=== PATIENT | female | born 1990 | race African-American/Black ===

== ENCOUNTER 2020-08-08 11:42 | Emergency (ER) | payer OTHER, MEDICAID, SELFPAY ==
[2020-08-08] VITALS (7 sets, daily range): BP systolic 107–121; BP diastolic 56–85; PULSE 69–102; RESP 13–18; TEMP 37.3; O2SAT 96–100
--- NOTE | ~2020-08-08 | XR_ITS ---
XR chest 2V DATE: 08/08/2020 12:57 INDICATION: Dizziness. Weakness. TECHNIQUE: AP and lateral views COMPARISON: None FINDINGS: Normal heart size. No hilar or mediastinal enlargement. No pulmonary infiltrate or consolid ation, pleural effusion or pulmonary vascular congestion or pneumothorax. Included skeletal structure s are unremarkable. IMPRESSION: No active cardiopulmonary disease Reviewed, dictated and finalized at location A.
--- NOTE | 2020-08-08 11:46 | ECG_ITS ---
Measurements Intervals [place] Rate: 91 P: 67 AL: 145 QRS: 60 QRSD: 82 T: 32 QT: 360 QTc: 444 Interpretive Statements SINUS RHYTHM NONSPECIFIC ST ELEVATION IN ANTEROLATERAL LEADS BORDERLINE T WAVE ABNORMALITY- INFERIOR LEADS BASELINE ARTIFACT- I, II, III, AVR, AVL, AVF, V1-V2 BORDERLINE ECG Electronically Signed On 08-08-2020 11:52:39 CDT by Sloan Swartz D.O.
[2020-08-08 11:57] LABS: Basophils Percent Auto 0.7 % (0.2-1.2); Eosinophils Absolute Auto 0.1 K/mm3 (0-0.3); Eosinophils Percent Auto 1.7 % (0-4.4); Hematocrit 37.8 % (37.0-47.0); Immature Granulocyte Absolute 0.02 K/mm3 (0.00-0.031); Immature Granulocyte Percent A 0.3 % (0-0.5); Lymphocytes Absolute Auto 1.71 K/mm3 (0.9-3.2); Lymphocytes Percent Auto 29.6 % (18.3-44.2); Mean Corpuscular HGB Conc 31.7 g/dl (32-36); Mean Corpuscular Hemoglobin 28.5 pg (26-34); Mean Corpuscular Volume 89.8 fl (80-100); Mean Platelet Volume 11.5 fl (7.4-10.4); Monocytes Absolute Auto 0.4 K/mm3 (0.1-0.6); Monocytes Percent Auto 6.4 % (2.6-8.5); Neutrophils Absolute Auto 3.5 K/mm3 (1.3-6.7); Neutrophils Percent Auto 61.3 % (45.5-73.1); Platelet Count Result 186 k/mm3 (150-375); Red Blood Count 4.21 M/mm3 (4.2-5.4); Red Cell Distribution Width 12.9 % (11.5-14.5); White Blood Count 5.8 K/mm3 (4.5-10.0)
--- NOTE | 2020-08-08 12:21 | ED.WEAKNESS ---
HPI - Weakness General Chief complaint: Weakness Stated complaint: WEAK/DIZZY Time Seen by Provider: 08/08/20 11:57 Source: patient Mode of arrival: EMS Limitations: no limitations History of Present Illness HPI Narrative: This is a 30 year old female that presents to the ER for weakness. 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 Reports she started to feel weak and lightheaded. Reports she walked to the break room and felt very weak. She felt like she was going to pass out, but did not. Reports she tried a coworker all last week that was recently diagnosed with Covid. Denies fever, chest pain, shortness of breath, abdominal pain, vomiting, or dysuria. Related Data Home Medications Medication Instructions Recorded Confirmed No Home Medications 08/08/20 08/08/20 Allergies Allergy/AdvReac Type Severity Reaction Status Date / Time No Known Allergies Allergy Verified 08/08/20 11:46 Review of Systems Review of Systems: Narrative: CONSTITUTIONAL: Denies fever CARDIOVASCULAR: Denies chest pain RESPIRATORY: Denies cough or dyspnea. GASTROINTESTINAL: Denies abdominal pain, nausea, vomiting GENITOURINARY: Denies dysuria NEUROLOGIC: Reports generalized weakness. All systems reviewed & are unremarkable except as noted in HPI and below PMFSH Past Medical History Medical History (Updated 08/08/20 @ 15:16 by Hanna Saenz PA-C) No active medical problems Social History Social History (Updated 08/08/20 @ 15:11 by Hanna Saenz PA-C) Substance use: never Exam Narrative: Exam Narrative: GENERAL: Well-appearing, well-nourished, and in no acute distress. HEAD: Normocephalic, atraumatic. EYES: PERRLA and EOMI. ENT: Nares clear, no rhinorrhea or epistaxis. Mucous membranes moist. Oropharynx without tonsillar hypertrophy exudate or other lesions. Bilateral TMs pearly santo non-bulging NECK: Supple. No adenopathy or masses. CHEST: Clear to auscultation. No respiratory distress. No wheezes rales or rhonchi HEART: Regular rate and rhythm. No murmur heard. Normal peripheral pulses. EXTREMITIES: Normal range of motion. No edema. Strength equal in bilateral upper and lower extremities (5/5) SKIN: Warm, dry, no rash. NEURO: No focal deficits. Alert and oriented x3. Cranial nerves II through XII grossly intact. Normal [id number] PSYCH: Normal mood and affect Course Vital Signs Vital signs: Vital Signs Temperature 99.2 F 08/08/20 11:41 Pulse Rate 69 08/08/20 11:41 Respiratory Rate 18 08/08/20 11:41 Blood Pressure 107/72 08/08/20 11:41 Pulse Oximetry 96 08/08/20 11:41 Temperature 99.2 F 08/08/20 11:41 Pulse Rate 79 08/08/20 14:37 Respiratory Rate 17 08/08/20 14:37 Blood Pressure 114/59 L 08/08/20 14:37 Pulse Oximetry 98 08/08/20 14:37 MDM - Weakness MDM Narrative Medical decision making narrative: Patient presents the emergency department for generalized weakness and lightheadedness. She is afebrile and nontoxic-appearing. Vitals are stable. She is not orthostatic. CBC and CMP without acute findings. UA without evidence of infection. Bedside test is negative. EKG shows sinus tach with nonspecific ST changes. Patient denies any chest pain or shortness of breath. Chest x-ray is without acute findings. Patient reports improvement with IV fluids. SARS-CoV-2 was sent due to recent exposure. She is stable and felt appropriate for further outpatient evaluation. She was given warnings to return to the ER Lab Data Attestation: I reviewed the patient's lab results. Result diagrams: 08/08/20 11:49 08/08/20 12:42 Labs: Lab Results 08/08/20 08/08/20 08/08/20 Range/Units 11:49 12:42 13:21 WBC 5.8 (4.5-10.0) K/mm3 RBC 4.21 (4.2-5.4) M/mm3 Hgb 12.0 (12.0-15.0) g/dL Hct 37.8 (37.0-47.0) % MCV 89.8 (80-100) fl MCH 28.5 (26-34) pg MCHC 31.7 L (32-36) g/dl RDW 12.9 (11.5-14.5) % Plt Count 186
[2020-08-08] MEDS: SODIUM CHLORIDE 0.9% IV 1,000 ML 999 ML IV CONT (12:39)
[2020-08-08 13:01] LABS: Alanine Aminotransferase 17 U/L (4-35); Albumin Level 4.6 g/dL (3.5-5.1); Alkaline Phosphatase 64 U/L (38-126); Anion Gap 10 mmol/L (8-16); Aspartate Amino Transferase 28 U/L (14-36); Bilirubin,Total 0.4 mg/dL (0.2-1.3); Blood Urea Nitrogen 10 mg/dL (7-17); Carbon Dioxide 30 mmol/L (22-30); Chloride 100 mmol/L (98-107); Estimated CRCL calculation 96 ml/min; Estimated Glomerular Filt Rate > 60; Glucose 90 mg/dL (65-105); Sodium 140 mmol/L (137-145)
[2020-08-08 13:40] LABS: Add Urine Microscopic? YES; Appearance Urine Clear (Clear); Bilirubin Urine Negative (Negative); Blood Urine Negative (Negative); Color Urine Straw (Yellow); Glucose Urine UA Negative (Negative); Ketones Urine Trace mg/dL (Negative); Leukocyte Esterase Ur Negative LEU/UL (Negative); Nitrate Urine Negative (Negative); Protein Urine Negative (Negative); RBC Urine 0-2 /hpf (0-2); Specific Grav Ur 1.013 (1.001-1.035); Squamous Epithelial Cell Urine Moderate /hpf (Few); Urobilinogen Urine Negative mg/dL (<2.0)
[2020-08-09 12:45] LABS: SARS-CoV-2 RNA PCR Negative
== END 2020-08-08 15:50 | disposition home or self-care (01) ==
PROVIDERS: Physician Assistant; Emergency Provider Emergency Medicine
DX: R42 Dizziness and giddiness (principal); Z20.828 Contact with and (suspected) exposure to other viral communicable diseases; R00.0 Tachycardia, unspecified
CPT/HCPCS: 36415; 71046; 80053; 81001; 81025; 85025; 87635; 93005; 96360; 99283; C9803; J7030; U0003

== ENCOUNTER 2020-08-12 09:53 | Emergency (ER) | payer OTHER, MEDICAID, SELFPAY ==
--- NOTE | ~2020-08-12 | CT_ITS ---
EXAMINATION: CT brain wo con EXAM DATE: 08/12/2020 11:03 INDICATION: Headache, lightheadedness. TECHNIQUE: Spiral CT of the head was performed without contrast. Axial, coronal and sagittal images were reviewed. The dose-length product (DLP) for this examination was 605.33 mGy-cm. The exposure w as tailored according to patient size, and iterative reconstruction (ASIR) was used as additional dos e reduction technique. There is no prior study for comparison. FINDINGS: There is no acute intraparenchymal hemorrhage. No evidence of intraparenchymal brain mass lesion. No evidence of acute infarction. There is no mass effect or midline shift. The ventricles are normal in size. There are no extra-axial collections. There are no acute calvarial fractures. T he orbits are unremarkable. Soft tissue is unremarkable. The visualized sinuses and mastoid air manjeet ls are well aerated. IMPRESSION: 1. Normal head CT examination. Reviewed, dictated and finalized at location B. [facility]
--- NOTE | ~2020-08-12 | XR_ITS ---
EXAMINATION: XR chest 2V DATE: 08/12/2020 13:14 INDICATION: Shortness of breath TECHNIQUE: AP and lateral views of the chest are obtained. COMPARISON: 08/08/2020 FINDINGS: The lungs are free of acute opacities. There is no pleural effusion or pneumothorax. The ca rdiomediastinal silhouette is normal. The visualized bones and soft tissues are unremarkable. IMPRESSION: 1. No acute cardiopulmonary abnormality. 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
[2020-08-12 10:06] VITALS: BP 115/75; PULSE 81; RESP 17; TEMP 36.8; O2SAT 100
--- NOTE | 2020-08-12 10:12 | ECG_ITS ---
Measurements Intervals [place] Rate: 80 P: 63 UT: 139 QRS: 64 QRSD: 82 T: 15 QT: 354 QTc: 410 Interpretive Statements SINUS RHYTHM NONSPECIFIC T-WAVE ABNORMALITY- ANT/INF LEADS BASELINE ARTIFACT- I, II, AVR, AVF BORDERLINE ECG Electronically Signed On 08-12-2020 10:22:22 QA SPECIALIST by Sloan Swartz D.O.
--- NOTE | 2020-08-12 10:21 | ED.DIZZY ---
HPI - Dizziness General Chief Complaint: Dizziness Stated Complaint: DIZZY, WAS SEEN HERE WEDNESDAY Time Seen by Provider: 08/12/20 10:10 Source: patient Mode of arrival: ambulatory Limitations: no limitations History of Present Illness HPI Narrative: This is a 30 year old female that presents to the ER for lightheadedness and weakness. She was seen here for this 4 days ago. Has continued to have symptoms. Also reports a headache and shortness of breath today. Denies fever, chest pain, cough, vomiting, lower extremity edema or numbness. Related Data Home Medications Medication Instructions Recorded Confirmed No Home Medications 08/08/20 08/08/20 Allergies Allergy/AdvReac Type Severity Reaction Status Date / Time No Known Allergies Allergy Verified 08/12/20 10:12 Review of Systems Review of Systems: Narrative: CONSTITUTIONAL: Denies fever EYES: Denies visual changes CARDIOVASCULAR: Denies chest pain, or edema. RESPIRATORY: Reports dyspnea. Denies cough GASTROINTESTINAL: Denies abdominal pain, nausea, vomiting GENITOURINARY: Denies dysuria or hematuria. SKIN: Denies rash NEUROLOGIC: Reports headache, and generalized weakness. Denies numbness All systems reviewed & are unremarkable except as noted in HPI and below PMFSH Past Medical History Medical History (Updated 08/12/20 @ 15:59 by Hanna Saenz PA-C) No active medical problems Social History Social History (Updated 08/12/20 @ 10:23 by Hanna Saenz PA-C) Smoking status: Never smoker Substance use: never Exam Narrative: Exam Narrative: GENERAL: Well-appearing, well-nourished, and in no acute distress. HEAD: Normocephalic, atraumatic. EYES: PERRLA and EOMI. ENT: Nares clear, no rhinorrhea or epistaxis. Mucous membranes moist. Oropharynx without tonsillar hypertrophy exudate or other lesions. NECK: Supple. No adenopathy or masses. CHEST: Clear to auscultation. No respiratory distress. No wheezes rales or rhonchi HEART: Regular rate and rhythm. No murmur heard. Normal peripheral pulses. EXTREMITIES: Normal range of motion. No edema. Strength equal in bilateral upper and lower extremities (5/5) SKIN: Warm, dry, no rash. NEURO: No focal deficits. Alert and oriented x3. Cranial nerves II through XII grossly intact PSYCH: Normal mood and affect Course Consultations Consultation #1: Spoke with Dr. Zhao about patient and work-up. She will need further testing done and he can follow-up with her for this. Date: 08/12/20 Time: 15:57 Vital Signs Vital signs: Vital Signs Temperature 98.2 F 08/12/20 10:06 Pulse Rate 81 08/12/20 10:06 Respiratory Rate 17 08/12/20 10:06 Blood Pressure 115/75 08/12/20 10:06 Pulse Oximetry 100 08/12/20 10:06 Temperature 98.2 F 08/12/20 10:06 Pulse Rate 92 08/12/20 15:47 Respiratory Rate 18 08/12/20 13:21 Blood Pressure 97/73 L 08/12/20 15:47 Pulse Oximetry 100 08/12/20 13:21 MDM - Dizziness MDM Narrative Medical decision making narrative: Patient presents to the emergency department for lightheadedness. Was also reporting shortness of breath. Orthostatic upon arrival. This improved with IV fluids. Was not orthostatic on repeat orthostats and was able to ambulate to the bathroom. Patient reports relief in symptoms with IV fluid and migraine cocktail for headache. CBC is without leukocytosis. Does show mild normocytic anemia with hemoglobin of 11.8. Metabolic panel without concerning findings. D-dimer is negative and chest x-ray is without acute findings. TSH is normal. Bedside test is negative. CT scan of the brain is without acute findings. PTT was prolonged on coagulation studies. I did repeat this and it was prolonged again. Spoke with Dr. Zhao about patient and work-up. She will need further testing done and he can follow-up with her for this. I believe this can be done on an outpatient basis. No active bleeding today. Denies any previous problems wi
--- NOTE | 2020-08-12 10:52 | PC.NURSE ---
pt. has been stuck multiple times and only three vacs were obtained (two green, one purple). Remaining tests need to be completed, PT INT PTT D dimer, and TSH reflex.
[2020-08-12 10:54] LABS: Basophils Absolute Auto 0.1 K/mm3 (0.0-0.1); Basophils Percent Auto 0.9 % (0.2-1.2); Eosinophils Absolute Auto 0.2 K/mm3 (0-0.3); Eosinophils Percent Auto 3.2 % (0-4.4); Hematocrit 37.2 % (37.0-47.0); Hemoglobin 11.8 g/dL (12.0-15.0); Immature Granulocyte Absolute 0.03 K/mm3 (0.00-0.031); Immature Granulocyte Percent A 0.6 % (0-0.5); Lymphocytes Absolute Auto 1.47 K/mm3 (0.9-3.2); Lymphocytes Percent Auto 27.4 % (18.3-44.2); Mean Corpuscular HGB Conc 31.7 g/dl (32-36); Mean Corpuscular Hemoglobin 28.4 pg (26-34); Mean Corpuscular Volume 89.4 fl (80-100); Mean Platelet Volume 11.6 fl (7.4-10.4); Monocytes Absolute Auto 0.4 K/mm3 (0.1-0.6); Monocytes Percent Auto 7.3 % (2.6-8.5); Neutrophils Absolute Auto 3.3 K/mm3 (1.3-6.7); Neutrophils Percent Auto 60.6 % (45.5-73.1); Platelet Count Result 178 k/mm3 (150-375); Red Blood Count 4.16 M/mm3 (4.2-5.4); Red Cell Distribution Width 12.8 % (11.5-14.5); White Blood Count 5.4 K/mm3 (4.5-10.0)
[2020-08-12 11:11] LABS: Anion Gap 8 mmol/L (8-16); Blood Urea Nitrogen 10 mg/dL (7-17); Calcium 8.9 mg/dL (8.4-10.2); Carbon Dioxide 28 mmol/L (22-30); Chloride 103 mmol/L (98-107); Estimated CRCL calculation 83 ml/min; Estimated Glomerular Filt Rate > 60; Glucose 72 mg/dL (65-105); Potassium 4.2 mmol/L (3.4-5.0); Sodium 139 mmol/L (137-145)
[2020-08-12] MEDS: SODIUM CHLORIDE 0.9% IV 1,000 ML 999 ML IV CONT ×2 (11:17→12:59)
[2020-08-12] MEDS: diphenhydrAMINE HCl INJ 50 MG/ML VIAL 25 MG IV PUSH (11:18)
[2020-08-12] MEDS: METOCLOPRAMIDE HCL INJ 10 MG/2 ML VIAL IV PUSH (11:18)
[2020-08-12] MEDS: KETOROLAC 15 MG/ML VIAL (*BKC) IV PUSH (11:22)
[2020-08-12 11:45] VITALS: BP 105/67; BP 120/66; BP 95/81; PULSE 102; PULSE 84; PULSE 87
--- NOTE | 2020-08-12 11:57 | PC.NURSE ---
called phleb 11:58, said they would get to her after they finished in a room they were just entering.
[2020-08-12 12:36] LABS: Prothrombin Time 13.9 Seconds (11.1-14.7)
[2020-08-12 12:39] LABS: Partial Thromboplastin Time 123.3 SECONDS (22.3-36.8)
[2020-08-12 12:42] LABS: D Dimer 0.27 ug/mL (<0.48)
--- NOTE | 2020-08-12 13:01 | PC.NURSE ---
MARCELLO requested PTT be re-done, called phleb [phone] and asked someone to come draw
[2020-08-12 13:21] VITALS: BP 120/77; PULSE 87; RESP 18; O2SAT 100
[2020-08-12 13:56] LABS: Partial Thromboplastin Time 173.6 SECONDS (22.3-36.8)
[2020-08-12 14:23] LABS: Free T4 Free Thyroxine Reflex 0.78 ng/dL (0.78-2.19)
[2020-08-12 14:52] LABS: Prothrombin Time 13.5 Seconds (11.1-14.7)
[2020-08-12 15:04] LABS: Total Triiodothyronine (T3) 1.07 NG/ML (0.97-1.69)
[2020-08-12 15:45] VITALS: BP 103/63; PULSE 79
[2020-08-12 15:46] VITALS: BP 105/73; PULSE 87
[2020-08-12 15:47] VITALS: BP 97/73; PULSE 92
== END 2020-08-12 16:08 | disposition home or self-care (01) ==
PROVIDERS: Physician Assistant; Emergency Provider Emergency Medicine; PCP Emergency Medicine
DX: I95.1 Orthostatic hypotension (principal); R79.1 Abnormal coagulation profile
CPT/HCPCS: 36415; 70450; 71046; 80048; 81025; 84439; 84443; 84480; 85025; 85380; 85610; 85730; 93005; 96361; 96374; 96375; 99284; J0131; J1200; J1885; J2765; J7030

== ENCOUNTER 2020-11-13 14:00 | Outpatient (CLI) | payer OTHER, MEDICAID, SELFPAY ==
[2020-11-13 14:22] LABS: Basophils Percent Auto 0.6 % (0.2-1.2); Eosinophils Absolute Auto 0.1 K/mm3 (0-0.3); Eosinophils Percent Auto 2.1 % (0-4.4); Hematocrit 37.4 % (37.0-47.0); Hemoglobin 11.8 g/dL (12.0-15.0); Immature Granulocyte Absolute 0.02 K/mm3 (0.00-0.031); Immature Granulocyte Percent A 0.4 % (0-0.5); Lymphocytes Absolute Auto 1.93 K/mm3 (0.9-3.2); Lymphocytes Percent Auto 40.1 % (18.3-44.2); Mean Corpuscular HGB Conc 31.6 g/dl (32-36); Mean Corpuscular Hemoglobin 27.6 pg (26-34); Mean Corpuscular Volume 87.6 fl (80-100); Mean Platelet Volume 11.2 fl (7.4-10.4); Monocytes Absolute Auto 0.4 K/mm3 (0.1-0.6); Monocytes Percent Auto 8.1 % (2.6-8.5); Neutrophils Absolute Auto 2.3 K/mm3 (1.3-6.7); Neutrophils Percent Auto 48.7 % (45.5-73.1); Platelet Count Result 208 k/mm3 (150-375); Red Blood Count 4.27 M/mm3 (4.2-5.4); Red Cell Distribution Width 12.7 % (11.5-14.5); White Blood Count 4.8 K/mm3 (4.5-10.0)
[2020-11-13 16:30] LABS: Iron 105 ug/dL (37-170)
[2020-11-13 16:33] LABS: Alanine Aminotransferase 10 U/L (4-35); Albumin Level 4.5 g/dL (3.5-5.1); Alkaline Phosphatase 63 U/L (38-126); Anion Gap 7 mmol/L (8-16); Aspartate Amino Transferase 23 U/L (14-36); Bilirubin,Total 0.5 mg/dL (0.2-1.3); Blood Urea Nitrogen 12 mg/dL (7-17); Calcium 9.3 mg/dL (8.4-10.2); Carbon Dioxide 28 mmol/L (22-30); Chloride 104 mmol/L (98-107); Estimated Glomerular Filt Rate > 60; Glucose 78 mg/dL (65-105); Potassium 4.5 mmol/L (3.4-5.0); Sodium 139 mmol/L (137-145)
[2020-11-13 16:40] LABS: Percent Iron Saturation 29 % (20-50)
[2020-11-13 16:41] LABS: INR 0.9; Prothrombin Time 12.6 Seconds (11.1-14.7)
[2020-11-13 16:45] LABS: Partial Thromboplastin Time 138.4 SECONDS (22.3-36.8)
== END 2020-11-13 14:01 | disposition home or self-care (01) ==
PROVIDERS: PCP Emergency Medicine; Visit Provider Internal Medicine Hematology & Oncology
DX: D64.9 Anemia, unspecified (principal); R79.1 Abnormal coagulation profile
CPT/HCPCS: 36415; 80053; 82607; 82728; 83540; 83550; 84443; 85025; 85610; 85730; 86038; 86039

== ENCOUNTER 2020-11-28 13:01 | Outpatient (CLI) | payer OTHER, MEDICAID, SELFPAY | END 2020-11-28 13:02 | disposition home or self-care (01) | LOC: ANHLAB 13:03 | PROVIDERS: PCP Emergency Medicine; Visit Provider Internal Medicine Hematology & Oncology | DX: R79.1 Abnormal coagulation profile (principal) | CPT/HCPCS: 36415; 85240; 85250; 85335 ==

== ENCOUNTER 2023-03-09 08:12 | Emergency (ER) | payer OTHER, BC, SELFPAY ==
--- NOTE | ~2023-03-09 | XR_ITS ---
Clinical Indication: Chest pain PA and lateral views of the chest: Comparison: 08/12/2020 Findings: The lungs are clear, without evidence of focal consolidation or pleural effusion. Cardiome diastinal silhouette is within normal limits. Bones and soft tissues are unremarkable. Impression: Normal chest. Reviewed, dictated and finalized at location . Impression: Normal chest.
--- NOTE | ~2023-03-09 | CT_ITS ---
EXAMINATION: CTA chest PE protocol DATE: 03/09/2023 10:11 INDICATION: Chest pain. Elevated d-dimer. TECHNIQUE: Computed tomography (CT) pulmonary angiogram of the chest was performed with 100 mL Omnipa que-350 intravenous contrast. Additional 3D reconstructions utilizing coronal maximum intensity proje ction (MIP) were performed. Automated exposure control and iterative reconstruction technique were em ployed. The dose-length product was 208.75 mGy-cm. COMPARISON: None FINDINGS: Excellent contrast opacification of the pulmonary arteries. There is mild streak artifact from dense contrast in the superior vena cava and right atrium. Minimal scattered respiratory motion artifact wh ich does not significantly limit evaluation. No pulmonary embolism. 3 mm subpleural nodule at the pos terior left lower lobe. There is minimal dependent atelectasis in the right lower lobe. No pneumonia, pulmonary edema, pleural effusion or pneumothorax. Heart size is normal. No pericardial effusion. Th oracic aorta is normal in caliber with no dissection. There is a mixed pattern of interspersed soft t issue and fat attenuation in the anterior mediastinum without a more discrete homogeneous soft tissue density mass. This demonstrates a typical triangular configuration with concave margins and appearan ce for residual thymic tissue but slightly larger in size than normal for age, potentially thymic hyp erplasia. No pathologically enlarged thoracic lymphadenopathy. Visualized upper abdomen and bones are unremarkable. IMPRESSION: 1. No pulmonary embolism or other acute cardiopulmonary disease. 2. Greater than typical size of the thymus but which retains normal appearance and morphology with co nvex margins equivocal for thymic hyperplasia. 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 IMPRESSION: 1. No pulmonary embolism or other acute cardiopulmonary disease. 2. Greater than typical size of the thymus but which retains normal appearance and morphology with convex margins equivocal for thymic hyperplasia.
[2023-03-09 08:24] VITALS: BP 123/72; PULSE 68; RESP 16; TEMP 36.3; O2SAT 100
--- NOTE | 2023-03-09 08:26 | ECG_ITS ---
Measurements Intervals [place] Rate: 62 P: 57 SD: 160 QRS: 63 QRSD: 86 T: 46 QT: 422 QTc: 430 Interpretive Statements SINUS RHYTHM BORDERLINE T WAVE ABNORMALITY- ANTERIOR LEADS BASELINE ARTIFACT- I, II, AVR, V4-V6 BORDERLINE ECG COMPARED TO ECG 08/12/2020 10:03:38 NO SIGNIFICANT CHANGES Electronically Signed On 03-09-2023 9:22:09 CDT by Sloan Swartz D.O.
--- NOTE | 2023-03-09 08:31 | ED.WEAKNESS ---
HPI - Weakness General Chief complaint: Weakness Stated complaint: FATIGUE X3D Time Seen by Provider: 03/09/23 08:21 Source: patient, RN notes reviewed and old records reviewed Mode of arrival: ambulatory Limitations: no limitations History of Present Illness HPI Narrative: This is a 32 year old female who presents for evaluation of fatigue. Patient states she has been extremely fatigue for 3 days. She has been in the bed sleeping for 2 days. She reports nonradiating midsternal chest pain yesterday. She also reports nausea. She denies cough, fever, chills, abdominal pain, diarrhea. She reports history of intermittent migraine but she denies headache today. She has been eating and drinking normally. She denies any recent alcohol use or drug use. She denies any medication changes. Related Data Home Medications Medication Instructions Recorded Confirmed No Home Medications 08/08/20 03/09/23 Allergies Allergy/AdvReac Type Severity Reaction Status Date / Time No Known Allergies Allergy Verified 08/12/20 10:12 Review of Systems Constitutional: Constitutional: Reports fatigue and Denies weakness Cardiovascular: Cardiovascular: Reports chest pain, Denies syncope, Denies rapid heart rate, Denies irregular heart rhythm, Denies leg edema and Denies dyspnea Respiratory: Respiratory: Denies chest congestion, Denies hemoptysis, Denies excessive phlegm production and Denies dyspnea Gastrointestinal: Gastrointestinal: Denies abdominal pain, Denies hematochezia, Denies diarrhea, Reports nausea and Denies vomiting Genitourinary: Genitourinary: Denies hematuria and Denies dysuria Musculoskeletal: Musculoskeletal: Denies joint swelling, Denies loss of height and Denies muscle weakness Neurologic: Denies syncope, Denies focal weakness and Denies weakness PMFSH Past Medical History Medical History No active medical problems Social History Social History Smoking status: Never smoker Substance use: never Exam Narrative: GENERAL: Well-appearing, well-nourished, and in no acute distress. HEAD: Normocephalic, atraumatic EYES: PERRLA and EOMI, conjunctiva clear without discharge EARS: TM's clear bilaterally without erythema or dullness NOSE: Nares clear, no rhinorrhea or epistaxis THROAT:Mucous membranes moist, Oropharynx normal without erythema, exudate, peritonsillar swelling or fluctuance NECK: Supple, without lymphadenopathy or mass RESPIRATORY: No respiratory distress, Airway patent, Respirations non-labored, Clear to auscultation without rales, rhonchi or wheeze HEART: Regular rate and rhythm. No murmur heard. Normal peripheral pulses. ABDOMEN: Soft, nontender, nondistended, normal active bowel sounds. No masses. No rebound or guarding, No organomegaly. EXTREMITIES: No edema, normal strength with full range of motion. SKIN: Warm, dry, normal color without rash NEURO: Alert and oriented x3. CN 2-12 grossly intact. No focal deficits. PSYCH: Normal mood and affect. Course Reevaluation(s) Reevaluation #1: I discussed with patient evaluation unremarkable other than enlarge thymus. She will follow up with PCP Date: 03/09/23 Time: 10:57 Vital Signs Vital signs: Vital Signs Temperature 97.3 F L 03/09/23 08:24 Pulse Rate 68 03/09/23 08:24 Respiratory Rate 16 03/09/23 08:24 Blood Pressure 123/72 03/09/23 08:24 Pulse Oximetry 100 03/09/23 08:24 Oxygen Delivery Room Air 03/09/23 08:24 Temperature 97.3 F L 03/09/23 08:24 Pulse Rate 68 03/09/23 08:24 Respiratory Rate 16 03/09/23 08:24 Blood Pressure 123/72 03/09/23 08:24 Pulse Oximetry 100 03/09/23 08:24 Oxygen Delivery Room Air 03/09/23 08:24 MDM - Weakness Differential Diagnosis Differential diagnosis: Likely acute myocardial infarction, anemia, hypothyroidism, sepsis and dehydration Medical Record
[2023-03-09] MEDS: SODIUM CHLORIDE 0.9% IV 1,000 ML 999 ML IV CONT (08:49)
[2023-03-09] MEDS: ONDANSETRON INJ 4 MG/2 ML VIAL IV PUSH (08:49)
[2023-03-09 08:56] LABS: Appearance Urine Clear (Clear); Bilirubin Urine Negative (Negative); Blood Urine Negative (Negative); Color Urine Yellow (Yellow); Glucose Urine UA Negative (Negative); Ketones Urine Negative (Negative); Leukocyte Esterase Ur Negative LEU/UL (Negative); Nitrate Urine Negative (Negative); Protein Urine Negative (Negative); Specific Grav Ur 1.018 (1.001-1.035)
[2023-03-09 08:58] LABS: Basophils Percent Auto 0.8 % (0.2-1.2); Eosinophils Absolute Auto 0.1 K/mm3 (0-0.3); Eosinophils Percent Auto 1.9 % (0-4.4); Hematocrit 36.3 % (37.0-47.0); Hemoglobin 11.5 g/dL (12.0-15.0); Immature Granulocyte Absolute 0.02 K/mm3 (0.00-0.031); Immature Granulocyte Percent A 0.4 % (0-0.5); Lymphocytes Absolute Auto 1.52 K/mm3 (0.9-3.2); Lymphocytes Percent Auto 28.6 % (18.3-44.2); Mean Corpuscular HGB Conc 31.7 g/dl (32-36); Mean Corpuscular Hemoglobin 28.4 pg (26-34); Mean Corpuscular Volume 89.6 fl (80-100); Mean Platelet Volume 11.9 fl (7.4-10.4); Monocytes Absolute Auto 0.3 K/mm3 (0.1-0.6); Monocytes Percent Auto 6.2 % (2.6-8.5); Neutrophils Absolute Auto 3.3 K/mm3 (1.3-6.7); Neutrophils Percent Auto 62.1 % (45.5-73.1); Platelet Count Result 204 k/mm3 (150-375); Red Blood Count 4.05 M/mm3 (4.2-5.4); Red Cell Distribution Width 12.9 % (11.5-14.5); White Blood Count 5.3 K/mm3 (4.5-10.0)
[2023-03-09 09:02] LABS: Add Urine Microscopic? NO
[2023-03-09 09:04] LABS: INR 0.9
[2023-03-09 09:11] LABS: D Dimer 0.67 ug/mL (<0.48)
[2023-03-09 09:12] LABS: Alanine Aminotransferase 17 U/L (6-35); Albumin Level 4.2 g/dL (3.5-5.1); Alkaline Phosphatase 54 U/L (38-126); Anion Gap 4 mmol/L (8-16); Aspartate Amino Transferase 29 U/L (14-36); Bilirubin,Total 0.6 mg/dL (0.2-1.3); Blood Urea Nitrogen 14 mg/dL (7-17); Calcium 8.9 mg/dL (8.4-10.2); Carbon Dioxide 31 mmol/L (22-30); Chloride 101 mmol/L (98-107); Estimated CRCL calculation 112 ml/min; Estimated Glomerular Filt Rate > 60; Ethanol < 10 mg/dL (<10); Glucose 90 mg/dL (65-110); Lipase 100 U/L (23-300); Magnesium 1.8 mg/dL (1.6-2.3); Potassium 4.5 mmol/L (3.4-5.0); Sodium 136 mmol/L (137-145)
[2023-03-09 09:14] LABS: Amphetamine Screen Urine Negative (Negative); Barbiturate Screen Urine Negative (Negative); Benzodiazepines Screen Urine Negative (Negative); Cannabinoid Screen Urine Negative (Negative); Cocaine Screen Urine Negative (Negative); Methadone Screen Urine Negative (Negative); Opiate Screen Urine Negative (Negative); Phencyclidine Screen Urine Negative (Negative)
[2023-03-09 09:23] LABS: Troponin I < 0.012 ng/mL (0.000-0.034)
[2023-03-09 09:28] LABS: Influenza A QL RT-PCR Negative (Negative); Influenza B QL RT-PCR Negative (Negative); SARS-CoV-2 RNA PCR Negative (Negative)
[2023-03-09 11:13] VITALS: RESP 18; O2SAT 100
== END 2023-03-09 11:13 | disposition home or self-care (01) ==
PROVIDERS: Emergency Provider General Practice; PCP Family Medicine
DX: R94.31 Abnormal electrocardiogram [ECG] [EKG] (principal)
CPT/HCPCS: 36415; 71046; 71275; 80053; 80307; 81003; 81025; 83690; 83735; 84443; 84484; 85025; 85380; 85610; 85730; 87636; 93005; 96361; 96374; 99284; J2405; J7030; Q9967

== ENCOUNTER 2023-05-15 12:44 | Emergency (ER) | payer OTHER, SELFPAY ==
[2023-05-15 13:04] VITALS: BP 115/57; PULSE 71; RESP 16; TEMP 36.2; O2SAT 100
--- NOTE | 2023-05-15 14:22 | ED.GENADULT ---
HPI - General Adult General Chief complaint: Urogenital-Female Stated complaint: UTI Time Seen by Provider: 05/15/23 14:22 Source: patient Mode of arrival: ambulatory Limitations: no limitations History of Present Illness HPI narrative: 32-year-old female patient presents to [facility] with complaints of urinary symptoms that started about 2-3 days ago. Patient states this started with urinary frequency and urgency. Patient states she has now developed pain with urination. Denies any low back pain, nausea, vomiting or diarrhea. Related Data Home Medications Medication Instructions Recorded Confirmed ergocalciferol (vitamin D2) 1,250 05/15/23 mcg (50,000 unit) capsule ferrous sulfate 325 mg (65 mg mg 05/15/23 iron) tablet Allergies Allergy/AdvReac Type Severity Reaction Status Date / Time No Known Allergies Allergy Verified 05/15/23 13:19 Review of Systems Review of Systems: CONSTITUTIONAL: Denies fever, chills, or sweats. EYES: Denies visual changes, redness, or discharge. ENT: Denies rhinorrhea, congestion, sore throat, or otalgia. CARDIOVASCULAR: Denies chest pain, palpitations, or edema. RESPIRATORY: Denies cough or dyspnea. GASTROINTESTINAL: Denies abdominal pain, nausea, vomiting, or diarrhea. GENITOURINARY: Positive dysuria denies hematuria. SKIN: Denies rash or itching. MUSCULOSKELETAL: Denies back pain, joint pain, or myalgia. NEUROLOGIC: Denies headache, numbness, or weakness. PSYCHIATRIC: Denies anxiety or depression. PMFSH Past Medical History Medical History No active medical problems Social History Social History Smoking status: Never smoker Substance use: never Exam Narrative: GENERAL: Well-appearing, well-nourished, and in no acute distress. HEAD: Normocephalic, atraumatic. EYES: PERRLA and EOMI. ENT: Nares clear, no rhinorrhea or epistaxis. Mucous membranes moist. NECK: Supple. No lymphadenopathy CHEST: Clear to auscultation. No respiratory distress. HEART: Regular rate and rhythm. No murmur heard. Normal peripheral pulses. ABDOMEN: Soft, nontender, nondistended, normal active bowel sounds. No CVA tenderness on percussion EXTREMITIES: Normal range of motion. No edema. SKIN: Warm, dry, no rash. NEURO: No focal deficits. Alert and oriented x3. Course Course Level of Care: Express Care Visit Vital Signs Vital signs: Vital Signs Temperature 36.2 C L 05/15/23 13:04 Pulse Rate 71 05/15/23 13:04 Respiratory Rate 16 05/15/23 13:04 Blood Pressure 115/57 L 05/15/23 13:04 Pulse Oximetry 100 05/15/23 13:04 Oxygen Delivery Room Air 05/15/23 13:04 Temperature 36.2 C L 05/15/23 13:04 Pulse Rate 71 05/15/23 13:04 Respiratory Rate 16 05/15/23 13:04 Blood Pressure 115/57 L 05/15/23 13:04 Pulse Oximetry 100 05/15/23 13:04 Oxygen Delivery Room Air 05/15/23 13:04 Medical Decision Making Differential Diagnosis Differential Diagnosis: Differential diagnosis: Uncomplicated lower UTI, uncomplicated UTI, pyelonephritis Vital Signs Vital Signs: Vital Signs Temperature 36.2 C L 05/15/23 13:04 Pulse Rate 71 05/15/23 13:04 Respiratory Rate 16 05/15/23 13:04 Blood Pressure 115/57 L 05/15/23 13:04 Pulse Oximetry 100 05/15/23 13:04 Oxygen Delivery Room Air 05/15/23 13:04 Temperature 36.2 C L 05/15/23 13:04 Pulse Rate 71 05/15/23 13:04 Respiratory Rate 16 05/15/23 13:04 Blood Pressure 115/57 L 05/15/23 13:04 Pulse Oximetry 100 05/15/23 13:04 Oxygen Delivery Room Air 05/15/23 13:04 Lab Data Labs: UCG Bedside Result Negative Reference Range: Negative Urine Glucose Negative Reference Range: Negative Urine Bilirubin Negative
== END 2023-05-15 14:41 | disposition home or self-care (01) ==
PROVIDERS: Emergency Provider Nurse Practitioner Family; PCP Emergency Medicine
DX: N39.0 Urinary tract infection, site not specified (principal)
CPT/HCPCS: 81003; 81025; 87077; 87086; 87186; 99213; G0463

== ENCOUNTER 2023-07-01 08:45 | Emergency (ER) | payer OTHER, SELFPAY ==
[2023-07-01 08:55] VITALS: BP 115/69; PULSE 98; RESP 16; TEMP 36.8; O2SAT 100
--- NOTE | 2023-07-01 09:24 | ED.ALLEREA ---
HPI - Allergic Reaction General Chief complaint: Allergic Reaction Stated complaint: Allergic Reaction Time Seen by Provider: 07/01/23 09:25 Source: patient, RN notes reviewed and old records reviewed Mode of arrival: ambulatory Limitations: no limitations History of Present Illness HPI narrative: 32 year old female who [facility] with complaints of facial swelling on Wednesday after using hair dye. Patient reports that she took some Benadryl and it improved on Wednesday. Patient states that her left eye continues to be swollen and she was sent home from work today. Patient denies any pain or feelings of irritation to eye or any change in her vision. Visual acuity right 20/40, left 20/50. together 20/30 without correction. Patient denies any shortness of breath or any difficulty with breathings.Patient has no drooping of face tongue is midline,face is symmetrical. MD complaint: facial swelling and other (eye swelling left) Onset (ago): day(s) (2) Known history of allergy to: none Symptoms: facial swelling and other (left eye lid swelling) Severity: mild Previous Allergic Reaction History: none Related Data Home Medications Medication Instructions Recorded Confirmed ergocalciferol (vitamin D2) 1,250 05/15/23 mcg (50,000 unit) capsule ferrous sulfate 325 mg (65 mg mg 05/15/23 iron) tablet Allergies Allergy/AdvReac Type Severity Reaction Status Date / Time No Known Allergies Allergy Verified 07/01/23 08:56 Review of Systems Review of Systems: CONSTITUTIONAL: Denies fever, chills, or sweats. CARDIOVASCULAR: Denies chest pain, palpitations, or edema. RESPIRATORY: Denies cough or dyspnea. SKIN: Reports .previous swelling of face along forehead and now some left eye swelling MUSCULOSKELETAL: Denies joint pain or myalgia. NEUROLOGIC: Denies headache, numbness, or weakness. All systems reviewed & are unremarkable except as noted in HPI and below PMFSH Past Medical History Medical History Anemia Surgical History Surgical History History of endometrial ablation Social History Social History Smoking status: Never smoker Substance use: never Comments At time of signature, agree with nursing past medical, surgical, social and family history. There is no relevant family history pertinent to the presenting complaint Exam Narrative: GENERAL: Well-appearing, well-nourished, and in no acute distress. HEAD: Normocephalic, atraumatic. EYES: PERRLA, conjunctivae clear, and EOMI.swelling of left eyelid, denies any visual changes or sharp pain or feeling of foreign body ENT: Mucous membranes moist. Oropharynx without edema, erythema or lesions. NECK: Supple. No lymphadenopathy CHEST: Clear to auscultation. No respiratory distress. HEART: Regular rate and rhythm. SKIN: Warm, dry.? NEURO:? Alert and oriented x3. PSYCH: Normal mood and affect Course Course Emergency Course: Patient is aware of diagnosis, understands and agrees to treatment plan.? Anticipatory guidance given.? Patient agrees to follow-up as directed and is aware of reasons to seek care at the emergency department. Portions of this record may have been created with voice recognition software Level of Care: Express Care Visit Vital Signs Vital signs: Vital Signs Temperature 36.8 C 07/01/23 08:55 Pulse Rate 98 07/01/23 08:55 Respiratory Rate 16 07/01/23 08:55 Blood Pressure 115/69 07/01/23 08:55 Pulse Oximetry 100 07/01/23 08:55 Oxygen Delivery Room Air 07/01/23 08:55 Temperature 36.8 C 07/01/23 08:55 Pulse Rate 98 07/01/23 08:55 Respiratory Rate 16 07/01/23 08:55 Blood Pressure 115/69 07/01/23 08:55 Pulse Oximetry 100 07/01/23 08:55 Oxygen Delivery Room Air 07/01/23 08:55 Reviewed MDM
== END 2023-07-01 09:46 | disposition home or self-care (01) ==
PROVIDERS: Emergency Provider Registered Nurse; PCP Emergency Medicine
DX: T78.40XA Allergy, unspecified, initial encounter (principal)
CPT/HCPCS: 99213; G0463

== ENCOUNTER 2023-07-13 15:58 | Emergency (ER) | payer OTHER, SELFPAY ==
--- NOTE | ~2023-07-13 | CT_ITS ---
EXAMINATION: CT brain wo con DATE: 07/13/2023 17:20 INDICATION: Dizziness. TECHNIQUE: Computed tomography (CT) of the head was performed without intravenous contrast. The mA wa s adjusted according to patient size. Iterative reconstruction technique was employed. The dose-lengt h product was 605.33 mGy-cm. COMPARISON: Head CT 08/12/2020 FINDINGS: There is no intracranial hemorrhage, acute infarction, or abnormal intracranial mass lesion . The ventricles are normal in size. The orbits are normal. There is mild mucosal thickening in the p aranasal sinuses. The mastoid air cells are normal. IMPRESSION: 1. Normal brain. Reviewed, dictated and finalized at location E. IMPRESSION: 1. Normal brain.
[2023-07-13 16:18] VITALS: BP 101/69; PULSE 94; RESP 14; TEMP 36.7; O2SAT 100
--- NOTE | 2023-07-13 17:58 | ED.GENADULT ---
HPI - General Adult General Chief complaint: Unspecified Stated complaint: body aches, nausea, off balance Time Seen by Provider: 07/13/23 17:11 Source: patient Mode of arrival: ambulatory Limitations: no limitations History of Present Illness HPI narrative: This is a 32 year old female that presents to the ER for multiple complaints. Reports feeling off balance. Reports fatigue and generalized weakness. Reports it is hard to get through a day. Reports some nausea, headaches and blurry vision. Denies fever, chest pain, shortness of breath, abdominal pain, vomiting, dysuria, or focal numbness or weakness. Related Data Home Medications Medication Instructions Recorded Confirmed ergocalciferol (vitamin D2) 1,250 05/15/23 mcg (50,000 unit) capsule ferrous sulfate 325 mg (65 mg mg 05/15/23 iron) tablet Allergies Allergy/AdvReac Type Severity Reaction Status Date / Time No Known Allergies Allergy Verified 07/01/23 08:56 Review of Systems Review of Systems: CONSTITUTIONAL: Denies fever EYES: Reports visual changes CARDIOVASCULAR: Denies chest pain, or edema. RESPIRATORY: Denies dyspnea. GASTROINTESTINAL: Reports nausea. Denies vomiting, or diarrhea. GENITOURINARY: Denies dysuria SKIN: Denies rash MUSCULOSKELETAL: Reports myalgia. NEUROLOGIC: Reports headaches and generalized weakness. All systems reviewed & are unremarkable except as noted in HPI and below PMFSH Past Medical History Medical History Anemia Surgical History Surgical History History of endometrial ablation Social History Social History Smoking status: Never smoker Substance use: never Exam Narrative: GENERAL: Well-appearing, well-nourished, and in no acute distress. HEAD: Normocephalic, atraumatic. EYES: PERRLA and EOMI. ENT: Nares clear, no rhinorrhea or epistaxis. Mucous membranes moist. Oropharynx without tonsillar hypertrophy exudate or other lesions. Bilateral TMs pearly [place] non-bulging NECK: Supple. No adenopathy or masses. CHEST: Clear to auscultation. No respiratory distress. No wheezes rales or rhonchi HEART: Regular rate and rhythm. No murmur heard. Normal peripheral pulses. ABDOMEN: Soft, nontender, nondistended, normal active bowel sounds. EXTREMITIES: Normal range of motion. No edema. Strength equal in bilateral upper and lower extremities (5/5) SKIN: Warm, dry, no rash. NEURO: No focal deficits. Alert and oriented x3. Cranial nerves II through XII grossly intact. Normal [id number] PSYCH: Normal mood and affect Course Course Emergency Course: Patient was updated on work-up and agrees with further plan of care Consultations Consultation #1: Spoke with Dr. Zhao about patient and work-up. He has been following her for abnormal coagulation studies. Would like 1:1 mixing study ordered if we are able to do that here Date: 07/13/23 Vital Signs Vital signs: Vital Signs Temperature 98.1 F 07/13/23 16:18 Pulse Rate 94 07/13/23 16:18 Respiratory Rate 14 07/13/23 16:18 Blood Pressure 101/69 07/13/23 16:18 Pulse Oximetry 100 07/13/23 16:18 Oxygen Delivery Room Air 07/13/23 16:18 Temperature 98.1 F 07/13/23 16:18 Pulse Rate 94 07/13/23 16:18 Respiratory Rate 14 07/13/23 16:18 Blood Pressure 101/69 07/13/23 16:18 Pulse Oximetry 100 07/13/23 16:18 Oxygen Delivery Room Air 07/13/23 16:18 Medical Decision Making [facility] Narrative Medical decision making narrative: Patient reports waxing and waning symptoms of fatigue and feeling off balance over the last year. She is afebrile and nontoxic-appearing. She is neurologically intact. CBC is without leukocytosis. Does show normocytic anemia with hemoglobin of 11.1 which appears to be around her baseline. Metabolic panel without concerning fin
[2023-07-13 18:00] LABS: Basophils Absolute Auto 0.1 K/mm3 (0.0-0.1); Basophils Percent Auto 1.1 % (0.2-1.2); Eosinophils Absolute Auto 0.2 K/mm3 (0-0.3); Eosinophils Percent Auto 3.6 % (0-4.4); Hemoglobin 11.1 g/dL (12.0-15.0); Immature Granulocyte Absolute 0.01 K/mm3 (0.00-0.031); Immature Granulocyte Percent A 0.2 % (0-0.5); Lymphocytes Absolute Auto 1.66 K/mm3 (0.9-3.2); Lymphocytes Percent Auto 29.9 % (18.3-44.2); Mean Corpuscular HGB Conc 31.7 g/dl (32-36); Mean Corpuscular Hemoglobin 28.3 pg (26-34); Mean Corpuscular Volume 89.3 fl (80-100); Mean Platelet Volume 11.5 fl (7.4-10.4); Monocytes Absolute Auto 0.4 K/mm3 (0.1-0.6); Monocytes Percent Auto 7.6 % (2.6-8.5); Neutrophils Absolute Auto 3.2 K/mm3 (1.3-6.7); Neutrophils Percent Auto 57.6 % (45.5-73.1); Platelet Count Result 213 k/mm3 (150-375); Red Blood Count 3.92 M/mm3 (4.2-5.4); Red Cell Distribution Width 12.7 % (11.5-14.5); White Blood Count 5.6 K/mm3 (4.5-10.0)
[2023-07-13 18:06] LABS: Appearance Urine Clear (Clear); Bilirubin Urine Negative (Negative); Blood Urine Negative (Negative); Color Urine Yellow (Yellow); Glucose Urine UA Negative (Negative); Ketones Urine Negative (Negative); Leukocyte Esterase Ur Negative LEU/UL (Negative); Nitrate Urine Negative (Negative); Protein Urine Negative (Negative); Specific Grav Ur 1.027 (1.001-1.035)
[2023-07-13 18:09] LABS: Alanine Aminotransferase 15 U/L (6-35); Albumin Level 4.2 g/dL (3.5-5.1); Alkaline Phosphatase 48 U/L (38-126); Anion Gap 6 mmol/L (8-16); Aspartate Amino Transferase 28 U/L (14-36); Bilirubin,Total 0.7 mg/dL (0.2-1.3); Blood Urea Nitrogen 11 mg/dL (7-17); CRP < 0.5 mg/dL (<1.0); Calcium 8.8 mg/dL (8.4-10.2); Carbon Dioxide 29 mmol/L (22-30); Chloride 101 mmol/L (98-107); Estimated CRCL calculation 98 ml/min; Estimated Glomerular Filt Rate > 60; Glucose 87 mg/dL (65-110); Potassium 3.7 mmol/L (3.4-5.0); Sodium 136 mmol/L (137-145)
[2023-07-13 18:10] LABS: Add Urine Microscopic? NO
[2023-07-13 18:20] LABS: Amphetamine Screen Urine Negative (Negative); Barbiturate Screen Urine Negative (Negative); Benzodiazepines Screen Urine Negative (Negative); Cannabinoid Screen Urine Negative (Negative); Cocaine Screen Urine Negative (Negative); Methadone Screen Urine Negative (Negative); Opiate Screen Urine Negative (Negative); Phencyclidine Screen Urine Negative (Negative)
[2023-07-13 18:23] LABS: Prothrombin Time 13.8 Seconds (11.1-14.7)
[2023-07-13 18:25] LABS: Erythrocyte Sedimentation Rate 26 mm/hr (0-20)
[2023-07-13 18:26] LABS: Partial Thromboplastin Time 138.1 SECONDS (22.3-36.8)
[2023-07-13] MEDS: SODIUM CHLORIDE 0.9% IV 1,000 ML 999 ML IV CONT (18:27)
[2023-07-13] MEDS: ONDANSETRON INJ 4 MG/2 ML VIAL IV PUSH (18:28)
[2023-07-13] MEDS: MECLIZINE HCL 25 MG TABLET PO (18:28)
[2023-07-13 19:31] LABS: Pregnancy On Board Control Positive; Urine Pregnancy Test Negative
[2023-07-13 20:19] VITALS: BP 119/83; PULSE 64; RESP 14; TEMP 36.7; O2SAT 100
== END 2023-07-13 20:21 | disposition home or self-care (01) ==
PROVIDERS: Emergency Provider Physician Assistant; PCP Emergency Medicine
DX: R53.82 Chronic fatigue, unspecified (principal); R79.1 Abnormal coagulation profile; D64.9 Anemia, unspecified
CPT/HCPCS: 36415; 70450; 80053; 80307; 81003; 81025; 84443; 85025; 85610; 85652; 85730; 86140; 96361; 96374; 99284; A9270; J2405; J7030

== ENCOUNTER 2023-07-20 13:07 | Outpatient (CLI) | payer OTHER, SELFPAY ==
[2023-07-23 08:21] LABS: Reference Lab Test Name Mixing Study
== END 2023-07-20 13:08 | disposition home or self-care (01) ==
LOC: ANHLAB 13:36
PROVIDERS: PCP Emergency Medicine; Visit Provider Internal Medicine Hematology & Oncology
DX: R79.1 Abnormal coagulation profile (principal); D64.9 Anemia, unspecified
CPT/HCPCS: 36415; 85610; 85730; 85732

== ENCOUNTER 2024-05-25 08:05 | Emergency (ER) | payer OTHER, SELFPAY ==
--- NOTE | 2024-05-25 08:13 | ED.FEMALEGU ---
HPI - Female Genitourinary General Chief complaint: Urogenital-Female Stated complaint: UTI Source: patient and RN notes reviewed Mode of arrival: ambulatory Limitations: no limitations History of Present Illness HPI Narrative: 33 year old female presented for complaint of blood in urine and pain at the end of urination x24 hours, endorses suprapubic tenderness, urinary frequency and urgency x3 days. Endorses white vaginal discharge. Increased water intake since onset. LMP 7/3, irregular since uterine ablation, hx tubal ligation. Would like std testing as well. Related Data Allergies Allergy/AdvReac Type Severity Reaction Status Date / Time No Known Allergies Allergy Verified 05/25/24 08:20 Review of Systems Review of Systems: CONSTITUTIONAL: Denies body aches, fever, chills, or sweats. CARDIOVASCULAR: Denies chest pain, palpitations, or edema. RESPIRATORY: Denies cough or dyspnea. GASTROINTESTINAL: Denies abdominal pain, nausea, vomiting, or diarrhea. GENITOURINARY: Reports dysuria, frequency, urgency, hematuria, Denies flank pain SKIN: Denies rash, itching, or wounds. MUSCULOSKELETAL: Denies back pain or myalgia. [facility] Past Medical History Medical History (Updated 05/25/24 @ 08:31 by Teena Mendoza APRN) Anemia Surgical History Surgical History (Updated 05/25/24 @ 08:27 by Teena Mendoza APRN) History of endometrial ablation History of tubal ligation Social History Social History Smoking status: Never smoker Substance use: never Comments At time of signature, I have reviewed and agree with nursing past medical, surgical, social and family history unless otherwise noted. Please see nursing chart for further information. There is no relevant family history pertinent to the presenting complaint Exam Narrative: GENERAL: Well-appearing and in no acute distress. ENT: Mucous membranes pink and moist. CHEST: No respiratory distress. Clear to auscultation. HEART: Regular rate and rhythm. ABDOMEN: Soft, nondistended, normal active bowel sounds. mild suprapubic tenderness with palpation; No CVA tenderness SKIN: Warm, dry NEURO: No focal deficits. Alert and oriented x3. Gait steady. PSYCH: Normal affect. Course Course Emergency Course: Patient is aware of diagnosis, understands and agrees to treatment plan. Anticipatory guidance given. Patient agrees to follow-up as directed and is aware of reasons to seek care at the emergency department. Portions of this record may have been created with voice recognition software Level of Care: Express Care Visit Vital Signs Vital signs: Vital Signs Temperature 96.2 F L 05/25/24 08:28 Pulse Rate 83 05/25/24 08:28 Respiratory Rate 16 05/25/24 08:28 Blood Pressure 112/68 05/25/24 08:28 Pulse Oximetry 99 05/25/24 08:28 Oxygen Delivery Room Air 05/25/24 08:28 Temperature 96.2 F L 05/25/24 08:28 Pulse Rate 83 05/25/24 08:28 Respiratory Rate 16 05/25/24 08:28 Blood Pressure 112/68 05/25/24 08:28 Pulse Oximetry 99 05/25/24 08:28 Oxygen Delivery Room Air 05/25/24 08:28 Reviewed MDM - Female Genitourinary MDM Narrative Medical decision making narrative: Patient presenting with concern for UTI/STD. Urine culture sent and urine specimen collected for GC, chlamydia, trich. Informed Pt will be contacted w/ results when they become available if they are positive. Discussed with patient that it takes up to 7 days for results of cultures to be released and explained that we may treat empirically at this time. Declines treatment at this time and will return should tests be positive. I have instructed the patient to return to the ER at any time if there are any new or worsening symptoms. The patient expressed understanding of and agreement with this plan. Discussed physical exam findings and urine dip. Rx macrobid. Advised supportive measures and signs
[2024-05-25 08:28] VITALS: BP 112/68; PULSE 83; RESP 16; TEMP 35.7; O2SAT 99
[2024-05-25 08:37] LABS: EDUAAPPEAR Cloudy; EDUABILI Negative; EDUABLOOD 3+; EDUACOLOR1 Yellow; EDUAGLUCOSE Negative; EDUAKETONE Negative; EDUALEUKO 2+; EDUANITRATE Negative; EDUAPROTEIN 2+
[2024-05-25 20:35] LABS: Trichomonas Vag PCR NOT DETECTED (NOT DETECTE)
[2024-05-25 20:57] LABS: Chlamydia trachomatis NOT DETECTED (NOT DETECTE); Neisseria gonorrhoeae PCR NOT DETECTED (NOT DETECTE)
== END 2024-05-25 08:42 | disposition home or self-care (01) ==
PROVIDERS: Emergency Provider Nurse Practitioner Family; PCP Emergency Medicine
DX: N39.0 Urinary tract infection, site not specified (principal)
CPT/HCPCS: 81003; 87086; 87491; 87591; 87661; 99213; G0463

== ENCOUNTER 2024-07-21 07:06 | Emergency (ER) | payer OTHER, SELFPAY ==
--- NOTE | ~2024-07-21 | XR_ITS ---
EXAMINATION: XR chest 2V DATE: 07/21/2024 08:51 INDICATION: Headache and dizziness. Weakness. TECHNIQUE: Frontal and lateral views of the chest were obtained. COMPARISON: Chest 2 views 03/09/2023, chest CT 03/09/2023 FINDINGS: There is no pneumonia, pleural effusion, or pneumothorax. The heart size is normal. IMPRESSION: 1. No acute cardiopulmonary disease. 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
--- NOTE | 2024-07-21 07:15 | ECG_ITS ---
Test Date: 2024-07-21 07:19:12 Measurements Intervals [place] Rate: 74 P: 55 WV: 148 QRS: 57 QRSD: 87 T: 32 QT: 375 QTc: 418 Interpretive Statements SINUS RHYTHM NORMAL ELECTROCARDIOGRAM No previous ECG available for comparison Electronically Signed On 07-21-2024 12:33:55 CDT by Carlos Jacome M.D.
[2024-07-21 07:16] VITALS: BP 112/74; PULSE 87; RESP 15; O2SAT 100
--- NOTE | 2024-07-21 07:31 | ED.DIZZY ---
HPI - Dizziness General Chief Complaint: Dizziness Stated Complaint: dizziness Time Seen by Provider: 07/21/24 07:16 History of Present Illness HPI Narrative: 33F started feeling off-balance 3d ago, and with headache and nausea. Related Data Allergies Allergy/AdvReac Type Severity Reaction Status Date / Time No Known Allergies Allergy Verified 07/21/24 07:47 Review of Systems Review of Systems: All systems reviewed & are unremarkable except as noted in HPI and below PMFSH Past Medical History Medical History (Updated 07/21/24 @ 09:07 by Radha Dorantes MD) Anemia Surgical History Surgical History (Updated 05/25/24 @ 08:27 by Teena Mendoza APRN) History of endometrial ablation History of tubal ligation Social History Social History Smoking status: Never smoker Substance use: never Exam Narrative: EXAMINATION OF ORGAN SYSTEMS/BODY AREAS: Constitutional: Vital signs per nursing GENERAL:[No acute distress, non-toxic appearing.] HEAD: Normal with no signs of head trauma. Holding head slightly rigidly. EYES: EOMI, conjunctiva normal ENT: Hearing grossly intact LUNGS: Nonlabored breathing. HEART: [Regular rate and rhythm] ABD: [Soft], [nontender to palpation] EXT: Normal range of motion SKIN: [No rashes or lesions.] NEURO: [Alert and oriented x 3. No gross focal sensory or strength deficits. Clear speech.] PSYCH: Normal affect Course Vital Signs Vital signs: Vital Signs Pulse Rate 87 07/21/24 07:16 Respiratory Rate 15 07/21/24 07:16 Blood Pressure 112/74 07/21/24 07:16 Pulse Oximetry 100 07/21/24 07:16 Oxygen Delivery Room Air 07/21/24 07:16 Temperature 98.1 F 07/21/24 09:20 Pulse Rate 75 07/21/24 09:20 Respiratory Rate 17 07/21/24 09:20 Blood Pressure 123/60 07/21/24 09:20 Pulse Oximetry 99 07/21/24 09:20 Oxygen Delivery Room Air 07/21/24 07:16 MDM - Dizziness MDM Narrative Medical decision making narrative: Patient presents describing symptoms of vertigo for the last few days, has had this in the past, no recent trauma, no focal numbness or weakness, no neurologic deficits on exam, he symptoms only worse when she moves but are much better when she is lying still, given this and no risk factors for CVA I have very low concern for posterior CVA and suspect most likely BPPV. Labs within acceptable limits, I will treat her for migraine and also give her a dose of meclizine. I did re-evaluate the patient, she states that the headache and nausea have resolved, she is now able to walk around and the vertigo has largely resolved. Patient would like to go home at this time, I will give follow-up to Urology with strict return precautions, have let her know that the symptoms return she should come back, she is given prescriptions for Zofran and meclizine Lab Data 07/21/24 07:35 07/21/24 07:35 Labs: Lab Results 07/21/24 07/21/24 Range/Units 07:35 08:21 WBC 4.7 (4.5-10.0) K/mm3 RBC 4.23 (4.2-5.4) M/mm3 Hgb 12.0 (12.0-15.0) g/dL Hct 38.0 (37.0-47.0) % MCV 89.8 (80-100) fl MCH 28.4 (26-34) pg MCHC 31.6 L (32-36) g/dl RDW 12.7 (11.5-14.5) % Plt Count 197 (150-375) k/mm3 MPV 11.4 H (7.4-10.4) fl Immature Gran % (Auto) 0.2 (0-0.5) % Neut % (Auto) 54.5 (45.5-73.1) % Lymph % (Auto) 33.3 (18.3-44.2) % [place] % (Auto) 7.4 (2.6-8.5) % Eos % (Auto) 3.8 (0-4.4) % Baso % (Auto) 0.8 (0.2-1.2) % Lymph # (Auto) 1.57 (0.9-3.2) K/mm3 [place] # (Auto) 0.4 (0.1-0.6) K/mm3 Eos # (Auto) 0.2 (0-0.3) K/mm3 Baso # (Auto) 0.0 (0.0-0.1) K/mm3 Abs Immat Gran (auto) 0.01 (0.00-0.031) K/mm3 Absolute Neuts (auto) 2.6 (1.3-6.7) K/mm3 Absolute Nucleated RBC 0.000 (0.0-0.012) K/mm3 Nucleated RBC % 0.0 (0.0-0.2) % Sodium 137 (137-145) mmol/L Potassium 3.9 (3.4-5.0) mmol/L Chloride 102 (
[2024-07-21 07:37] VITALS: PULSE 79
[2024-07-21 07:47] LABS: Basophils Percent Auto 0.8 % (0.2-1.2); Eosinophils Absolute Auto 0.2 K/mm3 (0-0.3); Eosinophils Percent Auto 3.8 % (0-4.4); Immature Granulocyte Absolute 0.01 K/mm3 (0.00-0.031); Immature Granulocyte Percent A 0.2 % (0-0.5); Lymphocytes Absolute Auto 1.57 K/mm3 (0.9-3.2); Lymphocytes Percent Auto 33.3 % (18.3-44.2); Mean Corpuscular HGB Conc 31.6 g/dl (32-36); Mean Corpuscular Hemoglobin 28.4 pg (26-34); Mean Corpuscular Volume 89.8 fl (80-100); Mean Platelet Volume 11.4 fl (7.4-10.4); Monocytes Absolute Auto 0.4 K/mm3 (0.1-0.6); Monocytes Percent Auto 7.4 % (2.6-8.5); Neutrophils Absolute Auto 2.6 K/mm3 (1.3-6.7); Neutrophils Percent Auto 54.5 % (45.5-73.1); Platelet Count Result 197 k/mm3 (150-375); Red Blood Count 4.23 M/mm3 (4.2-5.4); Red Cell Distribution Width 12.7 % (11.5-14.5); White Blood Count 4.7 K/mm3 (4.5-10.0)
[2024-07-21] MEDS: MECLIZINE HCL 25 MG TABLET PO (07:47)
[2024-07-21] MEDS: METOCLOPRAMIDE HCL INJ 10 MG/2 ML VIAL IV PUSH (07:48)
[2024-07-21] MEDS: KETOROLAC 15 MG/ML VIAL (*BKC) IV PUSH (07:49)
[2024-07-21 08:15] LABS: Alanine Aminotransferase 11 U/L (6-35); Alkaline Phosphatase 55 U/L (38-126); Aspartate Amino Transferase 25 U/L (14-36); Bilirubin,Total 0.5 mg/dL (0.2-1.3); Calcium 8.9 mg/dL (8.4-10.2); Glucose 89 mg/dL (65-110)
[2024-07-21 08:31] LABS: Add Urine Microscopic? NO; Appearance Urine Clear (Clear); Bilirubin Urine Negative (Negative); Blood Urine Negative (Negative); Color Urine Yellow (Yellow); Glucose Urine UA Negative (Negative); Ketones Urine Negative (Negative); Leukocyte Esterase Ur Negative LEU/UL (Negative); Nitrate Urine Negative (Negative); Protein Urine Negative (Negative); Specific Grav Ur 1.017 (1.001-1.035)
[2024-07-21 08:34] VITALS: BP 106/62; PULSE 81; RESP 14; TEMP 36.6; O2SAT 100
[2024-07-21 08:40] LABS: Albumin Level 4.3 g/dL (3.5-5.1); Anion Gap 9 mmol/L (4-12); Blood Urea Nitrogen 10 mg/dL (7-17); Carbon Dioxide 26 mmol/L (22-30); Chloride 102 mmol/L (98-107); Estimated CRCL calculation 98 ml/min; Estimated Glomerular Filt Rate > 60; Potassium 3.9 mmol/L (3.4-5.0); Sodium 137 mmol/L (137-145)
[2024-07-21 09:20] VITALS: BP 123/60; PULSE 75; RESP 17; TEMP 36.7; O2SAT 99
== END 2024-07-21 09:21 | disposition home or self-care (01) ==
PROVIDERS: Emergency Provider Emergency Medicine; PCP Emergency Medicine
DX: R42 Dizziness and giddiness (principal); G43.909 Migraine, unspecified, not intractable, without status migrainosus
CPT/HCPCS: 36415; 71046; 80053; 81003; 85025; 93005; 96374; 96375; 99284; A9270; J1885; J2765

== ENCOUNTER 2024-09-22 14:11 | Emergency (ER) | payer OTHER, SELFPAY ==
[2024-09-22 14:28] VITALS: BP 111/70; PULSE 76; RESP 16; TEMP 36.1; O2SAT 99
[2024-09-22 14:36] LABS: EDUAAPPEAR Clear; EDUABILI Negative (Negative); EDUABLOOD Trace (Negative); EDUACOLOR1 Yellow; EDUAGLUCOSE Negative (Negative); EDUAKETONE Negative (Negative); EDUALEUKO Negative (Negative); EDUANITRATE Negative (Negative); EDUAPROTEIN Negative (Negative)
--- NOTE | 2024-09-22 14:41 | ED_ITS ---
HPI - General Adult General Chief complaint: Urogenital-Female Stated complaint: urinary issue w/bleeding Time Seen by Provider: 09/22/24 14:41 Source: patient, RN notes reviewed and old records reviewed Mode of arrival: ambulatory Limitations: no limitations History of Present Illness HPI narrative: 34-year-old female presents to the [facility] with concerns of bleeding, vaginal irritation. Patient reports having an ablation done in 2017 or 18. Related Data Allergies Allergy/AdvReac Type Severity Reaction Status Date / Time No Known Allergies Allergy Verified 09/22/24 14:40 Review of Systems Review of Systems: All systems reviewed & are unremarkable except as noted in HPI and below Constitutional: Constitutional: Reports no additional constitutional complaints ENT: Reports system reviewed and no additional complaints, except as documented Cardiovascular: Cardiovascular: Reports no additional cardiovascular complaints, Denies chest pain and Denies dyspnea Respiratory: Respiratory: Reports no additional respiratory complaints, Denies chest congestion, Denies cough and Denies dyspnea Gastrointestinal: Gastrointestinal: Reports no additional gastrointestinal complaints, Denies abdominal pain, Denies nausea and Denies vomiting Genitourinary: Genitourinary: Reports as per HPI Musculoskeletal: Musculoskeletal: Reports no additional musculoskeletal complaints Integumentary/Breasts: Skin/Breast: Reports system reviewed and no additional complaints, except as docu PMFSH Past Medical History Medical History Anemia Surgical History Surgical History History of tubal ligation History of endometrial ablation Social History Social History Smoking status: Never smoker Substance use: never Comments At the time of my signature, I reviewed and agree with the nursing past medical, surgical, social, and family history. There is no relevant family history pertinent to the patient complaint. Exam Const: General: cooperative, healthy appearing, comfortable, no acute distress, well developed, alert and well nourished Nutritional Appearance: well nourished Orientation/consciousness: patient oriented x3 Limitations: no limitations HENMT: Head: normal to inspection Ears: hearing grossly normal bilaterally and external ears normal Face/Nose/Sinus: Normal external nose present, normal facial exam and face symmetric Face and sinus: normal facial exam and face symmetric Eyes: General: appearance normal, both eyes and all related structures Alignment and Position: alignment normal Periorbital: periorbital findings normal Neck: Neck: normal visual inspection, full ROM, no lymphadenopathy and no meningeal signs Chest: Chest palpation & inspection: normal inspection of the chest Resp: Effort & Inspection: normal respiratory effort and able to speak in complete sentences Cardio: Rate: regular rate : General: Yes no CVA tenderness External Female Exam: normal external appearance Speculum Exam - Vagina: not erythematous, vaginal bleeding (Blood noted from OS), no masses, no swelling and nontender Speculum Exam - Cervix: normal appearance of the cervix Other: Chaperoned by Yadi BASS Skin: General skin exam: normal color and no rashes or lesions noted Lesions: no lesions Rashes: no rashes Wounds: no wounds Neuro: General: patient oriented x3, gait normal, tone normal, moves all extremities and no meningeal signs Cognition (Neuro): normal cognition Speech: normal speech Gait exam (Neuro): Normal gait present Extrem: General: normal to inspection, full ROM, capillary refill normal and normal gait Psych: Appearance: grossly normal and well kempt Mental Status: mental status grossly normal Speech and movement: Normal speech and movement present and Clear speech present Affect: normal affect Attitude: cooperative Course Course Level of Care: Express Care Visit Vital Signs Vital signs: Vital Signs Temperature 96.9 F L 09/22/24 14:28 Pulse Rate 76 09/22/24 14:28 Respiratory Rate 16 09/22/24 14:28 Blood Pressure 111/70 09/22/24 14:28 Pulse Oximetry 99 09/22/24 14:28 Oxygen Delivery Room Air 09/22/24 14:28 Temperature 96.9 F L 09/22/24 14:28 Pulse Rate 76 09/22/24 14:28 Respiratory Rate 16 09/22/24 14:28 Blood Pressure 111/70 09/22/24 14:28 Pulse Oximetry 99 09/22/24 14:28 Oxygen Delivery Room Air 09/22/24 14:28 Reviewed Medical Decision Making MDM Narrative Medical decision making narrative: Patient sitting comfortably in exam room. Nontoxic, vitals stable. Patient in no acute distress Patient presents for for blood on the toilet paper, irritation vaginally Gonorrhea, chlamydia, Trichomonas sent. BV sent, yeast sent. Urine showed no signs of a UTI. Patient appropriate for outpatient treatment and follow-up Discharge instructions reviewed with patient, as well as provided in writing per nursing staff. The instructions also include specific and strict return/GO TO THE ER as well as f/u information. All questions have been answered, and the patient deny any further questions with discharge and discharge plan. Some parts of this dictation were generated by voice recognition software and may contain typographical and/or grammatical inaccuracies. Differential Diagnosis Differential Diagnosis: STD, BV, yeast, vaginal irritation Medical Records Medical records reviewed: Yes I reviewed the external patient's medical records. Vital Signs Vital Signs: Vital Signs Temperature 96.9 F L 09/22/24 14:28 Pulse Rate 76 09/22/24 14:28 Respiratory Rate 16 09/22/24 14:28 Blood Pressure 111/70 09/22/24 14:28 Pulse Oximetry 99 09/22/24 14:28 Oxygen Delivery Room Air 09/22/24 14:28 Temperature 96.9 F L 09/22/24 14:28 Pulse Rate 76 09/22/24 14:28 Respiratory Rate 16 09/22/24 14:28 Blood Pressure 111/70 09/22/24 14:28 Pulse Oximetry 99 09/22/24 14:28 Oxygen Delivery Room Air 09/22/24 14:28 Reviewed Lab Data Lab results reviewed: Yes I reviewed the patient's lab results. Labs: Lab Results 09/22/24 09/22/24 Range/Units 14:33 14:46 POC Urine Color Yellow POC Urine Clarity Clear POC Urine pH 6.0 POC Ur Specif [place] 1.030 POC Urine Protein Negative (Negative) POC Ur Glucose (UA) Negative (Negative) POC Urine Ketones Negative (Negative) POC Urine Blood Trace (Negative) POC Urine Nitrite Negative (Negative) POC Urine Bilirubin Negative (Negative) POC Urine Urobilinogen 1.0 POC U Leukocyte Esteras Negative (Negative) C. trachomatis (PCR) Pending N. gonorrhoeae (PCR) Pending T. 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 Testing can take up to 72 hours. We will notify you if they are We also swabbed for bacterial vaginitis as well as a yeast infection. We will call you if they come back positive Patient Language: [place] Follow-up/Referrals: PHYSICIAN NOT ON STAFF,NONSTAFF [Primary Care Provider] - Stand Alone Forms: Work/School Release IP Time of Disposition: 15:03
[2024-09-22 20:53] LABS: Trichomonas Vag PCR NOT DETECTED (NOT DETECTE)
[2024-09-22 21:14] LABS: Chlamydia trachomatis NOT DETECTED (NOT DETECTE); Neisseria gonorrhoeae PCR NOT DETECTED (NOT DETECTE)
[2024-09-25 16:08] LABS: Bacterial Vaginosis POSITIVE (NEGATIVE)
== END 2024-09-22 15:09 | disposition home or self-care (01) ==
PROVIDERS: Emergency Provider Nurse Practitioner
DX: N76.0 Acute vaginitis (principal); N93.9 Abnormal uterine and vaginal bleeding, unspecified
CPT/HCPCS: 81003; 81513; 87070; 87491; 87591; 87661; 99213; G0463

== ENCOUNTER 2025-01-28 12:08 | Emergency (ER) | payer OTHER, SELFPAY ==
--- NOTE | 2025-01-28 12:09 | ED_ITS ---
HPI - Extremity Injury (Lower) General Chief Complaint: Extremity Problem,Nontraumatic Stated Complaint: right foot pain Time Seen by Provider: 01/28/25 12:09 Source: patient Mode of arrival: ambulatory Limitations: no limitations History of Present Illness HPI Narrative: Rosario is a 34-year-old female patient presenting to the clinic today with complaints of right arch/heal pain x2 weeks. She reports symptoms are worse when she is bearing weight after sitting for an hour or waking up in the morning. States it is a sharp tearing like pain to the arch of the foot also complaining of some foot pain to the lateral foot. Denies any known injury. Related Data Allergies Allergy/AdvReac Type Severity Reaction Status Date / Time No Known Allergies Allergy Verified 01/28/25 12:12 Review of Systems Review of Systems: Pertinent positives per HPI. Patient denies any fever, chills, rash, headache, visual changes, dizziness, cough, runny nose, sore throat, shortness of breath, chest pain, palpitations, nausea, vomiting, diarrhea, constipation, abdominal p ain, or any urinary issues. [facility] Past Medical History Medical History Anemia Surgical History Surgical History History of tubal ligation History of endometrial ablation Social History Social History Smoking status: Never smoker Substance use: never Comments At the time of my signature, I reviewed and agree with the nursing past medical, surgical, social, and family history. There is no relevant family history pertinent to the patient complaint. Exam Narrative: General: Well-developed, well nourished, in no apparent distress Head: Normocephalic, atraumatic. Cardio: Regular rate and rhythm, s1 and s2 normal, no murmur appreciated. Resp: Clear to auscultation bilaterally, no rhonchi, rales, wheezing or rubs. Musculoskeletal: No deformity, tender to palpation over the plantar fascia and the proximal heel, pain with dorsal flexion against resistance over the plantar fascia, grossly normal range of motion, muscle strength strong and equal, peripheral pulse strong, no edema, no cyanosis, normal gait and station Course Course Emergency Course: Portions of this record may have been created with voice recognition software. Level of Care: Express Care Visit Vital Signs Vital signs: Vital signs reviewed MDM - Extremity Injury (Lower) MDM Narrative Medical decision making narrative: At the time of visit patient is resting comfortably on the exam table. Patient appears to be nontoxic. Plan: I suspect patient has plantar fasciitis of the right foot. Prescription for Medrol Dosepak was sent to the pharmacy. Supportive measures were discussed with the patient and they voiced understanding discharge instructions and agrees to treatment plan. Return precautions reviewed Differential Diagnosis Differential diagnosis: Likely fracture of toe and other (Foot fracture, foot sprain) Discharge Plan Discharge Clinical Impression: Plantar fasciitis of right foot Patient Disposition: Home Condition: Stable Instructions: Antibiotic Form, Plantar Fasciitis (ED), Plantar Fasciitis Exercises (ED) Additional Instructions: Rest and ice Tylenol/motrin for pain as discussed. Take Medrol Dosepak as prescribed Gradually bear weight as tolerated May wear insoles in your work boots to help symptoms. Stretch the plantar fascia as discussed Follow up with your PCP if symptoms persist more than 1 week. Patient Language: Kiswahili Prescriptions: New methylprednisolone [Medrol (Erick)] 4 mg tablets,dose pack See Rx Instructions PO .COMPLEX Qty: 21 0RF Rx Instructions: orally per package directions Follow-up/Referrals: Gordy,Lanny Limon APRN [Primary Care Provider] - Time of Disposition: 12:23 Quality NIHSS Nursing Documentation ED NIHSS nursing documentation: reviewed/agree
[2025-01-28 12:16] VITALS: BP 106/68; PULSE 85; RESP 18; TEMP 36.4; O2SAT 100
== END 2025-01-28 12:30 | disposition home or self-care (01) ==
PROVIDERS: Emergency Provider Nurse Practitioner Family; PCP Nurse Practitioner Adult Health
DX: M72.2 Plantar fascial fibromatosis (principal)
CPT/HCPCS: 99213; G0463

== ENCOUNTER 2025-04-20 07:23 | Emergency (ER) | payer OTHER, SELFPAY ==
--- NOTE | ~2025-04-20 | CT_ITS ---
EXAMINATION: CT abdomen pelvis w con DATE: 04/20/2025 09:55 INDICATION: Bilateral lower quadrant pain TECHNIQUE: Computed tomography (CT) of the abdomen and pelvis was performed with 100 mL Omnipaque-350 intravenous contrast. Automated exposure control and iterative reconstruction technique were employe d. The dose-length product was 592.88 mGy-cm. COMPARISON: None FINDINGS: Lung bases are clear. Heart size is normal. No pericardial or pleural effusion. 1.8 cm hypodense lesi on along the ligamentum teres, typical location for focal fat. Gallbladder, spleen, pancreas, bilater al adrenal glands and kidneys are normal. Bladder, uterus and bilateral adnexa are unremarkable. Norm al appendix. No abnormal bowel wall thickening or obstruction. No free intraperitoneal gas or fluid. No pathologically enlarged abdominal or pelvic lymphadenopathy. Mild lumbar levocurvature. Hypoplasti c right-sided riblet at T12. L5 is sacralized. IMPRESSION: 1. No acute intra-abdominal/pelvic process. 2. 1.8 cm hypodense lesion along the ligamentum teres most likely related to focal fat although given the relatively nodular appearance in the absence of a definitive correlate on earlier CT dated 2022, with consider pre and postcontrast MRI for further evaluation. 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 IMPRESSION: 1. No acute intra-abdominal/pelvic process. 2. 1.8 cm hypodense lesion along the ligamentum teres most likely related to fo [place] fat although given the relatively nodular appearance in the absence of a de finitive correlate on earlier CT dated 03/09/2023, with consider pre and postcon trast MRI for further evaluation.
--- OUTSIDE RECORDS SUMMARY | 2025-04-20 07:26 | XMS_ITS | Clinical Summary ---
Author Organization [facility] Address [address] [place] [id number] Care Team Providers Care Ammonia Nitrate Operator Name Role Phone Codie Montero MD Primary Care Provider [phone] Allergies No known active allergies Medications ondansetron (ZOFRAN ODT) 4 mg Tablet, Rapid DissolveIndicat ions:Nausea Place 1 Tablet (4 mg) under tongue every 8 hours as needed for Other (See Comment) (Dizziness) . 10 Tablet 5 Active escitalopram oxalate (LEXAPRO) 10 mg tabletIndicatio ns:Anxiety and depression Take 1 Tablet (10 mg) by mouth daily. 30 Tablet 5 Active ondansetron (ZOFRAN ODT) 4 mg Tablet, Rapid DissolveIndicat ions:Vertigo Place 1 Tablet (4 mg) under tongue every 8 hours as needed for Other (See Comment) (Dizziness) . 10 Tablet 4 04/18/20 25 Discontinu ed(Reorder ) Active Problems Problem Noted Date Diagnosed Date Mild depression 07/25/2024 Chronic fatigue 07/23/2023 Situational stress 07/23/2023 Overview (07/23/2023): 07/2023 intermittent FMLA for s/s and evaluation absences MARÍA positive 07/23/2023 Overview (07/23/2023): Referred to rheumatology 07/2023 Vertigo 07/23/2023 Nausea 07/23/2023 Normocytic anemia 11/06/2020 Overview (07/23/2023): Seeing hematology 06/2023 Elevated partial thromboplastin time (PTT) 11/06 Encounters Date Type Department Care Team Description 04/18/2025 10:00 AM CDT Office Visit [facility] [employer] [facility] [address] [place] [address] Erika Mclean MD Anxiety and depression (Primary Dx); Nausea 04/03/2025 External Device Data STL ABSTRACTION Provider, Abstract 03/27/2025 External Device Data STL ABSTRACTION Provider, Abstract 03/21/2025 Orders Only [facility] - [place] [address] [place] [address] [place] [phone] Edilberto Zhao MD Normocytic anemia (Primary Dx) 03/01/2025 External Device Data STL ABSTRACTION Provider, Abstract 02/27/2025 External Device Data STL ABSTRACTION Provider, Abstract 01/23/2025 External Device Data ST[facility] ABSTRACTION Provider, Abstract from Last 3 Months Immunizations Immunization Administration Dates Next Due (ADACEL/BOOSTRIX)(10 YR UP) TDAP VACCINE, 0.5ML, IM 01/03/2025,10/11/2007 Family History Medical History Relation Name Comments No Known Problems Daughter 1 No Known Problems Daughter 2 Hypertension Father Colon Cancer Maternal Grandfather Hypertension Mother vertigo Mother vertigo Sister No Known Problems Son 1 No Known Problems Son 2 Relation Name Status Comments Daughter 1 Alive Daughter 2 Alive Father Alive Maternal Grandfather Mother Alive Sister Alive Son 1 Alive Son 2 Alive Social History Tobacco Use Types Packs/Day Years Used Date Smoking Tobacco: Never Smokeless Tobacco: Never Tobacco Cessation:Counseling Given: Not Answered Alcohol Use Standard Drinks/Week Comments Yes 0 (1 standard drink = 0.6 oz pure alcohol) weekend- Sat- 2 cocktails at most Feeling Safe Answer Date Recorded Within the last year, have y ou been afraid of your partner or ex-partner? No 11/20/2020 Within the last year, have y ou been humiliated or emotionally abused in other ways by your partner or ex-partner? No Within the last year, have y ou been kicked, hit, slapped, or otherwise physically hurt by your partner or ex-partner? No 11/20/2020 Within the last year, have y ou been raped or forced to have any kind of sexual activity by your partner or ex-partner? No 11/20/2020 Social Connections Answer Date Recorded In a typical week, how many times do you talk on the phone with family, friends, or neighbors? More than three times a week 11/20/2020 Frequency of Social Gatherin gs with Friends and Family Not on file 11/20/2020 How often do you attend [facility] or sabianist services? 1 to 4 times per year 11/20/2020 Active Member of Clubs or Organizations Not on f ile 11/20/2020 Attends Club or Organization Meetings Not on marco antonio e 11/20/2020 Marital Status Not on file 11/20/2020 Financial Resource Strain Answer Date R ecorded How hard is it for you to pa y for the very basics like food, housing, medical care, and heating? Not hard at all 11/20/2020 Transportation Needs Answer Date Record ed In the past 12 months, has l ack of transportation kept you from medical appointments or from getting medications? No 11/11 In the past 12 months, has l ack of transportation kept you from meetings, work, or from getting things needed for daily living? No 11/20/2020 Comments No Sex and Gender Information Value Date Recorded Sex Assigned at Not on file Legal Sex Female 10:57 AM CDT Gender Identity Not on file Sexual Orientation Not on file Last Filed Vital Signs Vital Sign Reading Time Taken Comments Blood Pressure 130/68 04/18/2025 10:00 AM CDT Pulse 69 04/18/2025 10:00 AM CDT Temperature 36.2 C (97.1 F) 04/18/2025 10:00 AM CDT Respiratory Rate 18 04/18/2025 10:00 AM CDT Oxygen Saturation 98% 04/18/2025 10:00 AM CDT Inhaled Oxygen Concentration - - Weight 83 kg (183 lb) 04/18/2025 10:00 AM CDT Height 157.5 cm (5' 2) 04/18/2025 10:00 AM CDT Body Mass Index 33.47 04/18/2025 10:00 AM CDT Plan of Treatment Upcoming Encounters Date Type Department Care Team (Late st Contact Info) Description 05/16/2025 9:30 AM CDT Office Visit [facility] [address] [place] [address] Codie Montero MD [address] [place] [address] Health Maintenance Due Date Last Done Comments HEPATITIS B VACCINES (1 of 3 - 19+ 3-dose series) 2008 INFLUENZA VACCINE (#1) 2025 PAP SMEAR 09/05/2027 09/05/2024, 11/14/2020 Pre-Diabetes and Diabetes Screening 01/12/2028 01/11/2025, 05/08/2022 CERVICAL CANCER SCREENING 09/05/2029 HPV/Cotest (21-29) 09/05/2029 09/05/2024, 11/14/2020 HPV/Cotest (30-65) 09/05/2029 09/05/2024, 11/14/2020 DTAP/TDAP/TD VACCINES (3 - Td or Tdap) 01/03/2035 01/03/2025, 10/11/2007 HPV VACCINES Aged Out No longer eligi ble based on patient's age to complete this topic Procedures Procedure Name Priority Date/Time Associated Diagnosis Comments HEMOGLOBIN A1C Routine 01/11/2025 7:48 AM CDT Screening for condition CERV/VAG CYTO SCREEN PAP W/HPV Routine 09/05/2024 10:49 AM WOODWORKING BELT SANDER Well woman exam with routine gynecological exam from Last 3 Months or Most Recently Relevant to Health Maintenance Results * HEMOGLOBIN A1C (01/11/2025 7:48 AM CDT) HEMOGLOBIN A1C 5.3 <5.7 % of total Hgb [facility] Comment: For the purpose of screening for the presence of diabetes: <5.7% Consistent with the absence of diabetes 5.7-6.4% Consistent with increased risk for diabetes (prediabetes) > or =6.5% Consistent with diabetes This assay result is consistent with a decreased risk of diabetes. Currently, no consensus exists regarding use of hemoglobin A1c for diagnosis of diabetes in children. According to [place] Diabetes Association (ADA) guidelines, hemoglobin A1c <7.0% represents optimal control in non- diabetic patients. Different metrics may apply to specific patient populations. Standards of Medical Care in Diabetes(ADA). ESTIMATED AVERAGE GLUCOSE (MG/DL) 105 mg/dL [facility] ESTIMATED AVERAGE GLUCOSE (MMOL/L) 5.8 mmol/L [facility] Comment: Test Performed at: [facility] [address] [place] [address] Kyaw Ward Blood 01/11/2025 7:48 AM CDT 01/12/2025 12:11 AM CDT Codie Montero MD CHEMISTRY ORDERABLES Final Res ult [facility] [phone] [facility] [address] [place] [address] * CERV/VAG CYTO SCREEN PAP W/HPV (09/05/2024 10:49 AM WOODWORKING BELT SANDER) CLINICAL INFORMATION [facility] Comment:None given LAST MENSTRUAL PERIOD [facility] [place] Comment:[id number] PREV PAP: [facility] Comment:None given PREV BX: [facility] [place] Comment:None given SOURCE [facility] [place] Comment:Endocervix ADEQUACY: [facility] [place] Comment: Satisfactory for evaluation. Endocervical/transformation zone component present. PAP INTERP [facility] [place] Comment: Cytology Results: Negative for intraepithelial lesion or malignancy. COMMENT (PAP TEST) [facility] [place] Comment: This Pap test has been evaluated with computer assisted technology. ADULT BASIC EDUCATION MANAGER: [facility] [place] Comment: BKA, CT(ASCP) CT screening location: [place] [address] [address] [place] [address]PL[address] [email or web address] Comment: EXPLANATORY NOTE: The Pap is a screening test for cervical cancer. It is not a diagnostic test and is subject to false negative and false positive results. It is most reliable when a satisfactory sample, regularly obtained, is submitted with relevant clinical findings and history, and when the Pap result is evaluated along with historic and current clinical information. HPV E6/E7 Not Detected Not Detected [facility] Comment: Methodology: Inhalation Therapist-Mediated Amplification This assay detects E6/E7 viral messenger RNA (mRNA) from 14 high-risk HPV types (16,18,31,33,35,39,45,51,52,56,58,59,66,68). Cervical sources are required for HPV testing. If a vaginal source from a patient who has had a total hysterectomy with removal of cervix was submitted, please contact the testing laboratory for alternative testing options. For additional information, please refer to http://education.[employer]/faq/MIK646f2 (This link if provided for information/ educational purposes only.) Test Performed at: [facility] [address] [place] [address] Kyaw Ward MD Genital SWAB OF ENDOCERVIX / Unknown 09/05/2024 10:49 AM WOODWORKING BELT SANDER 09/06/2024 1:16 AM WOODWORKING BELT SANDER Codie Montero MD PATHOLOGY/CYTOLOGY ORDERABLES Final Result [facility] [phone] [facility] [address] [place] [address] from Last 3 Months or Most Recently Relevant to Health Maintenance Insurance [facility] OPEN ACCESS [place] OPEN ACCESS Care Teams Ammonia Nitrate Operator Relationship Specialty Start Date End Date Codie Montero MD [address] [place] [address] [place] [address] PCP - General Internal Medicine 02/25/24
--- OUTSIDE RECORDS SUMMARY | 2025-04-20 07:26 | XMS_ITS | Clinical Summary ---
Author Organization [facility] Address [address] [place] [address] Care Team Providers Care Hydraulic Rubbish Compactor Mechanic Name Role Phone Jerson Andrews MD Primary Care Provider [phone] Source Comments [facility],non-owned Affiliates and Associated Physician Practices is amultiple site organization consisting of ambulatory clinics and hospital sitesin [place], [place], [place] and [place]. This disclosure is being madepursuant to the Care Everywhere program and may not contain all information available regarding this patient. Last updated 18.[facility] Allergies No known active allergies Medications * Be aware that medications may not be up to date on this document. Alwaysverify current medications with the patient. iud (PARAGARD) 1 Each by Intrauterine route once. Active D3-50 1.25 MG (96548 UT) Take 1 capsule by mouth every 7 days 3 Active FeroSul 325 (65 Fe) MG tablet Take 1 (one) tablet by mouth once daily 3 Active Social History Tobacco Use Types Packs/Day Years Used Date Smoking Tobacco: Never Assessed Smokeless Tobacco: Never Tobacco Cessation:Counseling Given: No Alcohol Use Standard Drinks/Week Comments Yes 0 (1 standard drink = 0.6 oz pur e alcohol) rare Comments No Sex and Gender Information Value Date Recorded Sex Assigned at Not on file Legal Sex Female 12:03 PM HULL AND DECK REMOVER Gender Identity Not on file Sexual Orientation Not on file Last Filed Vital Signs Vital Sign Reading Time Taken Comments Blood Pressure 107/72 05/26/2023 2:37 PM CDT Pulse 73 05/26/2023 2:37 PM CDT Temperature 36.4 C (97.5 F) 05/26/2023 2:37 PM CDT Respiratory Rate 18 05/05/2011 2:41 PM CDT Oxygen Saturation 100% 05/26/2023 2:37 PM CDT Inhaled Oxygen Concentration - - Weight 82.1 kg (181 lb) 05/26/2023 2:37 PM CDT Height 162 cm (5' 3.78) 05/26/2023 2:37 PM CDT Body Mass Index 31.28 05/26/2023 2:37 PM CDT Plan of Treatment Health Maintenance Due Date Last Done Comments HIV SCREENING 2004 HEPATITIS C SCREENING 07/31/2007 DTAP/TDAP/TD VACCINES (1 - Tdap) 2008 HEPATITIS B VACCINE (1 of 3 - 19+ 3-dose series) 2008 PAP SMEAR 2010 HPV VACCINE (1 - 3-dose SCDM series) 2016 COVID-19 VACCINE (3 - 2023-2 5 season) 2024 08/29/2021, 08/08/2021 DEPRESSION SCREENING 10/11/2024 INFLUENZA VACCINE (#1) 2025 ZOSTER VACCINE (1 of 2) 2039 HIB VACCINE Aged Out No longer eligi ble based on patient's age to complete this topic MENINGOCOCCAL (Group B) VACCINE SHARED DECISION-MAKING Aged Out No longer eligible based on patient's age to complete this topic MENINGOCOCCAL GROUPS A/C/Y/W VACCINE Aged Out No longer eligible b ased on patient's age to complete this topic PNEUMOCOCCAL VACCINE Aged Out No long er eligible based on patient's age to complete this topic Insurance [facility] Care Teams Hydraulic Rubbish Compactor Mechanic Relationship Specialty Start Date End Date Jerson Andrews MD [address] [place] [id number] PCP - General Family Medicine 05/26/23
--- OUTSIDE RECORDS SUMMARY | 2025-04-20 07:26 | XMS_ITS | Clinical Summary ---
Author Organization [place] [id number] [facility] Address [address] [place] [address] Care Team Providers Care Cashiers Supervisor Name Role Phone Lanny aKminski Suzanne PAYROLL PROCESSOR Primary Care Provider [phone] Allergies No known active allergies Medications ondansetron ODT (ZOFRAN-ODT) 4 mg disintegrating tablet DISSOLVE 1 TABLET ON THE TONGUE EVERY 8 HOURS NEEDED FOR NAUSEA OR VOMITING 4 Active meclizine (ANTIVERT) 25 mg tablet TAKE 1 TABLET BY MOUTH THREE TIMES DAILY NEEDED FOR MOTION SICKNESS 4 Active ferrous sulfate 325 mg (65 mg of elemental iron) tablet Take 1 tablet (325 mg total) by mouth daily 3 Active cholecalciferol (VITAMIN D-3) 50,000 unit capsule Take 1 capsule (50,000 Units total) by mouth once a week [address] (CYMBALTA) 60 mg capsule Take 1 capsule (60 mg total) by mouth daily 4 Active Active Problems No known active problems Social History Tobacco Use Types Packs/Day Years Used Date Smoking Tobacco: Never Tobacco Cessation:Counseling Given: Not Answered Comments Unknown Sex and Gender Information Value Date Recorded Sex Assigned at Not on file Legal Sex Female 5:41 PM RUG CLIPPER Gender Identity Not on file Sexual Orientation Not on file Obstetrics History Last Filed Vital Signs Vital Sign Reading Time Taken Comments Blood Pressure 108/68 09/18/2024 1:56 PM RUG CLIPPER Pulse 73 09/18/2024 1:56 PM RUG CLIPPER Temperature 36.4 C (97.5 F) 03/22/2019 11:49 AM CDT Respiratory Rate - - Oxygen Saturation 100% 03/22/2019 11:49 AM CDT Inhaled Oxygen Concentration - - Weight 87.1 kg (192 lb 0.3 oz) 10/23/2024 2:38 P M RUG CLIPPER Height 160 cm (5' 3) 10/23/2024 2:38 PM RUG CLIPPER Body Mass Index 34.01 10/23/2024 2:38 PM RUG CLIPPER Plan of Treatment Health Maintenance Due Date Last Done Comments Cervical Cancer Screening 1989 Depression Screening 1989 Hepatitis C Screening 1989 Varicella Vaccines (1 of 2 - 13+ 2-dose series) 2002 Hepatitis B Screening 2007 Regular Well Visit/Exam 18-64 2007 Covid-19 Vaccine (3 - 2023-2 5 season) 2024 08/29/2021, 08/08/2021 Influenza Vaccine (Season Ended) 2025 DTaP/Tdap/Td Vaccine (3 - Td or Tdap) 03/14/2028 03/14/2018, 10/11/2007 HPV Vaccines Aged Out No longer eligi ble based on patient's age to complete this topic Pneumococcal vaccine <65 Aged Out No longer eligible based on patient's age to complete this topic Insurance [facility] CHOICE PLUS CIGNA ALLEGIANCE [employer] Care Teams Cashiers Supervisor Relationship Specialty [place] [address] [place] [address] PCP - General Candy Separator Enrobing 09/19/24
--- OUTSIDE RECORDS SUMMARY | 2025-04-20 07:26 | XMS_ITS | Referral Summary ---
Author Organization [place] [id number] [facility] Address [address] [place] [address] Care Team Providers Care Collet Maker Name Role Phone Lanny Kaminski Suzanne ANDROID UI DEVELOPER Primary Care Provider [phone] Allergies No known active allergies Medications ondansetron [...] on file Legal Sex Female 5:41 PM TANKAGE SUPERVISOR Gender Identity Not on file Sexual Orientation Not on file Last Filed Vital Signs Vital Sign Reading Time Taken Comments Blood Pressure 108/68 09/18/2024 1:56 PM TANKAGE SUPERVISOR Pulse 73 09/18/2024 1:56 PM TANKAGE SUPERVISOR Temperature 36.4 C (97.5 F) 03/22/2019 11:49 AM CDT Respiratory Rate - - Oxygen Saturation 100% 03/22/2019 11:49 AM CDT Inhaled Oxygen Concentration - - Weight 87.1 kg (192 lb 0.3 oz) 10/23/2024 2:38 P M TANKAGE SUPERVISOR Height 160 cm (5' 3) 10/23/2024 2:38 PM TANKAGE SUPERVISOR Body Mass Index 34.01 10/23/2024 2:38 PM TANKAGE SUPERVISOR Plan of Treatment Not on file Insurance [facility] CHOICE PLUS [facility] [employer] Care Teams Collet Maker Relationship Specialty [place] [address] [place] [id number] PCP - General Otr Tanker Truck Driver 09/19/24
--- OUTSIDE RECORDS SUMMARY | 2025-04-20 07:26 | XMS_ITS | Clinical Summary ---
Author Organization [facility] [address] [address] Care Team Providers Care Winch Driver Name Role Phone Unavailable Primary Care Provider Unavailabl e Social History Tobacco Use Types Packs/Day Years Used Date Smoking Tobacco: Never Assessed Comments Unknown Sex and Gender Information Value Date Recorded Sex Assigned at Not on file Legal Sex Female 9:00 PM PDT Gender Identity Not on file Sexual Orientation Not on file Plan of Treatment Not on file
--- OUTSIDE RECORDS SUMMARY | 2025-04-20 07:26 | XMS_ITS | Encounter Summary ---
Author Organization [facility] Health Address [address] [place] [address] Care Team Providers Care Dog Show Judge Name Role Phone Unavailable Primary Care Provider Unavailabl e Prior Encounters Date Type Department Care Team Description 10/30/2019 Converted CPS Chart Documents [facility] [address] [place] [phone] <No scans attached> 10/30/2019 Converted CPS Chart Documents [facility] [address] [place] [address] <No scans attached> 10/30/2019 Converted 13x Documents [facility] [address] [place] [phone] <No scans attached> 10/30/2019 Converted 13x Documents [facility] [address] [place] [address] <No scans attached> Plan of Treatment Not on file Procedures Procedure Name Priority Date/Time Associated Diagnosis Comments OS CONSULT Routine 01/09/2021 2:00 AM CDT 16 EXTRACTION, ERUPTED TOOTH REQUIRING REMOVAL OF BONE AND/OR SECTIONING OF TOOTH Routine 01/09/2021 2:00 AM CDT 2 ENDODONTIC THERAPY, MOLAR TOOTH (EXCLUDING FINAL TAOIST) Routine 12/10/2020 2:00 AM INSTRUCTIONAL DESIGN TECHNOLOGIST 2 CORE BUILDUP, INCLUDING ANY PINS WHEN REQUIRED Routine 12/10/2020 2:00 AM INSTRUCTIONAL DESIGN TECHNOLOGIST 2 CROWN PORC POST Routine 12/10/2020 2:0 0 AM INSTRUCTIONAL DESIGN TECHNOLOGIST 2 TREATMENT OF ROOT CANAL OBSTRUCTION; NON-SURGICAL ACCESS Routine 11/07/2020 2:00 AM INSTRUCTIONAL DESIGN TECHNOLOGIST 2 ENDODONTIC THERAPY, MOLAR TOOTH (EXCLUDING FINAL TAOIST) Routine 11/07/2020 2:00 AM INSTRUCTIONAL DESIGN TECHNOLOGIST 2 ENDO CONSULT Routine 11/07/2020 2:00 AM INSTRUCTIONAL DESIGN TECHNOLOGIST 2 PULP VITALITY TESTS Routine 11/07/2020 2:00 AM INSTRUCTIONAL DESIGN TECHNOLOGIST BITEWINGS - FOUR RADIOGRAPHIC IMAGES Routine 08/16/2020 2:00 AM INSTRUCTIONAL DESIGN TECHNOLOGIST ADDITIONAL X-RAY Routine 08/16/2020 2:00 AM INSTRUCTIONAL DESIGN TECHNOLOGIST ADDITIONAL X-RAY Routine 08/16/2020 2:00 AM INSTRUCTIONAL DESIGN TECHNOLOGIST 18 MO AMALGAM 2 SURFACE Routine 08/13/20 20 2:00 AM INSTRUCTIONAL DESIGN TECHNOLOGIST 15 LO AMALGAM 2 SURFACE Routine 08/13/20 20 2:00 AM INSTRUCTIONAL DESIGN TECHNOLOGIST 14 MO AMALGAM 2 SURFACE Routine 08/13/20 20 2:00 AM INSTRUCTIONAL DESIGN TECHNOLOGIST 13 DO AMALGAM 2 SURFACE Routine 08/13/20 20 2:00 AM INSTRUCTIONAL DESIGN TECHNOLOGIST 21 O AMALGAM 1 SURFACE Routine 0 2:00 AM INSTRUCTIONAL DESIGN TECHNOLOGIST 20 O AMALGAM 1 SURFACE Routine 0 2:00 AM INSTRUCTIONAL DESIGN TECHNOLOGIST 19 EXTRACTION, ERUPTED TOOTH OR EXPOSED ROOT (ELEVATION AND/OR FORCEPS REMOVAL) Routine 08/13/2020 2:00 AM INSTRUCTIONAL DESIGN TECHNOLOGIST COMPREHENSIVE ORAL EVALUATION - NEW OR ESTABLISHED PATIENT Routine 08/13/2020 2:00 AM INSTRUCTIONAL DESIGN TECHNOLOGIST PANORAMIC RADIOGRAPHIC IMAGE Routine 08/13/2020 2:00 AM INSTRUCTIONAL DESIGN TECHNOLOGIST INTRAORAL - COMPREHENSIVE SERIES OF RADIOGRAPHIC IMAGES Routine 08/13/2020 2:00 AM INSTRUCTIONAL DESIGN TECHNOLOGIST INTRAORAL PHOTO Routine 08/13/2020 2:00 AM INSTRUCTIONAL DESIGN TECHNOLOGIST INTRAORAL PHOTO Routine 08/13/2020 2:00 AM INSTRUCTIONAL DESIGN TECHNOLOGIST INTRAORAL PHOTO Routine 08/13/2020 2:00 AM INSTRUCTIONAL DESIGN TECHNOLOGIST INTRAORAL PHOTO Routine 08/13/2020 2:00 AM INSTRUCTIONAL DESIGN TECHNOLOGIST 3 MOD COMPOSITE FILLING Routine 08/13/20 2:00 AM INSTRUCTIONAL DESIGN TECHNOLOGIST 31 MO COMPOSITE FILLING Routine 08/13/20 20 2:00 AM INSTRUCTIONAL DESIGN TECHNOLOGIST 30 MO COMPOSITE FILLING Routine 08/13/20 20 2:00 AM INSTRUCTIONAL DESIGN TECHNOLOGIST 4 DO COMPOSITE FILLING Routine 0 2:00 AM INSTRUCTIONAL DESIGN TECHNOLOGIST 2 MO COMPOSITE FILLING Routine 0 2:00 AM INSTRUCTIONAL DESIGN TECHNOLOGIST 9 MDL COMPOSITE FILLING Routine 08/13/20 20 2:00 AM INSTRUCTIONAL DESIGN TECHNOLOGIST 10 ML COMPOSITE FILLING Routine 08/13/20 20 2:00 AM INSTRUCTIONAL DESIGN TECHNOLOGIST 9 ML COMPOSITE FILLING Routine 0 2:00 AM INSTRUCTIONAL DESIGN TECHNOLOGIST 8 ML COMPOSITE FILLING Routine 0 2:00 AM INSTRUCTIONAL DESIGN TECHNOLOGIST CANCELLED APPOINTMENT Routine 08/03/2020 2:00 AM CDT Visit Diagnoses Not on file
[2025-04-20 07:49] VITALS: BP 113/69; PULSE 75; RESP 16; TEMP 36.6; O2SAT 100
--- OUTSIDE RECORDS SUMMARY | 2025-04-20 07:54 | XMS_ITS | Encounter Summary ---
Author Organization [facility] Health Address [address] [place] [address] Care Team Providers Care Lead Vulcanizing Operator Name Role Phone Unavailable Primary Care Provider Unavailabl e Prior Encounters Date Type Department Care Team Description 10/30/2019 Converted CPS Chart Documents [facility] [address] [place] [phone] <No scans attached> 10/30/2019 Converted CPS Chart Documents [facility] [address] [place] [address] <No scans attached> 10/30/2019 Converted 13x Documents [facility] [address] [place] [phone] <No scans attached> 10/30/2019 Converted 13x Documents [facility] [address] [place] [address] <No scans attached> Plan of Treatment Not on file Procedures Procedure Name Priority Date/Time Associated Diagnosis Comments OS CONSULT Routine 01/09/2021 2:00 AM CDT 16 EXTRACTION, ERUPTED TOOTH REQUIRING REMOVAL OF BONE AND/OR SECTIONING OF TOOTH Routine 01/09/2021 2:00 AM CDT 2 ENDODONTIC THERAPY, MOLAR TOOTH (EXCLUDING FINAL CHEONDOISM) Routine 12/10/2020 2:00 AM LIBRARY CIRCULATION DEPARTMENT CHIEF 2 CORE BUILDUP, INCLUDING ANY PINS WHEN REQUIRED Routine 12/10/2020 2:00 AM LIBRARY CIRCULATION DEPARTMENT CHIEF 2 CROWN PORC POST Routine 12/10/2020 2:0 0 AM LIBRARY CIRCULATION DEPARTMENT CHIEF 2 TREATMENT OF ROOT CANAL OBSTRUCTION; NON-SURGICAL ACCESS Routine 11/07/2020 2:00 AM LIBRARY CIRCULATION DEPARTMENT CHIEF 2 ENDODONTIC THERAPY, MOLAR TOOTH (EXCLUDING FINAL CHEONDOISM) Routine 11/07/2020 2:00 AM LIBRARY CIRCULATION DEPARTMENT CHIEF 2 ENDO CONSULT Routine 11/07/2020 2:00 AM LIBRARY CIRCULATION DEPARTMENT CHIEF 2 PULP VITALITY TESTS Routine 11/07/2020 2:00 AM LIBRARY CIRCULATION DEPARTMENT CHIEF BITEWINGS - FOUR RADIOGRAPHIC IMAGES Routine 08/16/2020 2:00 AM LIBRARY CIRCULATION DEPARTMENT CHIEF ADDITIONAL X-RAY Routine 08/16/2020 2:00 AM LIBRARY CIRCULATION DEPARTMENT CHIEF ADDITIONAL X-RAY Routine 08/16/2020 2:00 AM LIBRARY CIRCULATION DEPARTMENT CHIEF 18 MO AMALGAM 2 SURFACE Routine 08/13/20 20 2:00 AM LIBRARY CIRCULATION DEPARTMENT CHIEF 15 LO AMALGAM 2 SURFACE Routine 08/13/20 20 2:00 AM LIBRARY CIRCULATION DEPARTMENT CHIEF 14 MO AMALGAM 2 SURFACE Routine 08/13/20 20 2:00 AM LIBRARY CIRCULATION DEPARTMENT CHIEF 13 DO AMALGAM 2 SURFACE Routine 08/13/20 20 2:00 AM LIBRARY CIRCULATION DEPARTMENT CHIEF 21 O AMALGAM 1 SURFACE Routine 0 2:00 AM LIBRARY CIRCULATION DEPARTMENT CHIEF 20 O AMALGAM 1 SURFACE Routine 0 2:00 AM LIBRARY CIRCULATION DEPARTMENT CHIEF 19 EXTRACTION, ERUPTED TOOTH OR EXPOSED ROOT (ELEVATION AND/OR FORCEPS REMOVAL) Routine 08/13/2020 2:00 AM LIBRARY CIRCULATION DEPARTMENT CHIEF COMPREHENSIVE ORAL EVALUATION - NEW OR ESTABLISHED PATIENT Routine 08/13/2020 2:00 AM LIBRARY CIRCULATION DEPARTMENT CHIEF PANORAMIC RADIOGRAPHIC IMAGE Routine 08/13/2020 2:00 AM LIBRARY CIRCULATION DEPARTMENT CHIEF INTRAORAL - COMPREHENSIVE SERIES OF RADIOGRAPHIC IMAGES Routine 08/13/2020 2:00 AM LIBRARY CIRCULATION DEPARTMENT CHIEF INTRAORAL PHOTO Routine 08/13/2020 2:00 AM LIBRARY CIRCULATION DEPARTMENT CHIEF INTRAORAL PHOTO Routine 08/13/2020 2:00 AM LIBRARY CIRCULATION DEPARTMENT CHIEF INTRAORAL PHOTO Routine 08/13/2020 2:00 AM LIBRARY CIRCULATION DEPARTMENT CHIEF INTRAORAL PHOTO Routine 08/13/2020 2:00 AM LIBRARY CIRCULATION DEPARTMENT CHIEF 3 MOD COMPOSITE FILLING Routine 08/13/20 2:00 AM LIBRARY CIRCULATION DEPARTMENT CHIEF 31 MO COMPOSITE FILLING Routine 08/13/20 20 2:00 AM LIBRARY CIRCULATION DEPARTMENT CHIEF 30 MO COMPOSITE FILLING Routine 08/13/20 20 2:00 AM LIBRARY CIRCULATION DEPARTMENT CHIEF 4 DO COMPOSITE FILLING Routine 0 2:00 AM LIBRARY CIRCULATION DEPARTMENT CHIEF 2 MO COMPOSITE FILLING Routine 0 2:00 AM LIBRARY CIRCULATION DEPARTMENT CHIEF 9 MDL COMPOSITE FILLING Routine 08/13/20 20 2:00 AM LIBRARY CIRCULATION DEPARTMENT CHIEF 10 ML COMPOSITE FILLING Routine 08/13/20 20 2:00 AM LIBRARY CIRCULATION DEPARTMENT CHIEF 9 ML COMPOSITE FILLING Routine 0 2:00 AM LIBRARY CIRCULATION DEPARTMENT CHIEF 8 ML COMPOSITE FILLING Routine 0 2:00 AM LIBRARY CIRCULATION DEPARTMENT CHIEF CANCELLED APPOINTMENT Routine 08/03/2020 2:00 AM CDT Visit Diagnoses Not on file
--- OUTSIDE RECORDS SUMMARY | 2025-04-20 07:54 | XMS_ITS | Clinical Summary ---
Author Organization [facility] [address] [facility] [address] [address] Care Team Providers Care Chain Sales Representative Name Role Phone Unavailable Primary Care Provider [...]
--- OUTSIDE RECORDS SUMMARY | 2025-04-20 07:55 | XMS_ITS | Referral Summary ---
Author Organization [place] [id number] [facility] Address [address] [place] [address] Care Team Providers Care Stable Helper Name Role Phone Lanny Kaminski Suzanne REMOTE SENSING SPECIALIST Primary Care Provider [phone] Allergies No known active allergies Medications ondansetron [...] on file Legal Sex Female 5:41 PM ASSISTANT COMMUNITY DIRECTOR Gender Identity Not on file Sexual Orientation Not on file Last Filed Vital Signs Vital Sign Reading Time Taken Comments Blood Pressure 108/68 09/18/2024 1:56 PM ASSISTANT COMMUNITY DIRECTOR Pulse 73 09/18/2024 1:56 PM ASSISTANT COMMUNITY DIRECTOR Temperature 36.4 C (97.5 F) 03/22/2019 11:49 AM CDT Respiratory Rate - - Oxygen Saturation 100% 03/22/2019 11:49 AM CDT Inhaled Oxygen Concentration - - Weight 87.1 kg (192 lb 0.3 oz) 10/23/2024 2:38 P M ASSISTANT COMMUNITY DIRECTOR Height 160 cm (5' 3) 10/23/2024 2:38 PM ASSISTANT COMMUNITY DIRECTOR Body Mass Index 34.01 10/23/2024 2:38 PM ASSISTANT COMMUNITY DIRECTOR Plan of Treatment Not on file Insurance [facility] CHOICE PLUS [facility] ALLEGIANCE [employer] Care Teams Stable Helper Relationship Specialty [place] [address] [place] [phone] PCP - General Cellophaner 09/19/24
--- OUTSIDE RECORDS SUMMARY | 2025-04-20 07:55 | XMS_ITS | Clinical Summary ---
Author Organization [place] [id number] [facility] Address [address] [place] [address] Care Team Providers Care Hemodialysis Patient Care Specialist Name Role Phone Lanny Kaminski Suzanne DOWELER Primary Care Provider [phone] Allergies No known active allergies Medications ondansetron [...] on file Legal Sex Female 5:41 PM [employer] GROUP LEADER Gender Identity Not on file Sexual Orientation Not on file Obstetrics History Last Filed Vital Signs Vital Sign Reading Time Taken Comments Blood Pressure 108/68 09/18/2024 1:56 PM [employer] GROUP LEADER Pulse 73 09/18/2024 1:56 PM [employer] GROUP LEADER Temperature 36.4 C (97.5 F) 03/22/2019 11:49 AM CDT Respiratory Rate - - Oxygen Saturation 100% 03/22/2019 11:49 AM CDT Inhaled Oxygen Concentration - - Weight 87.1 kg (192 lb 0.3 oz) 10/23/2024 2:38 P M [employer] LEADER Height 160 cm (5' 3) 10/23/2024 2:38 PM [employer] SOUNDINGS GROUP LEADER Body Mass Index 34.01 10/23/2024 2:38 PM [employer] GROUP LEADER Plan of Treatment Health Maintenance Due Date [...] patient's age to complete this topic Insurance [facility] CHOICE PLUS [employer] ALLEGIANCE [employer]LEGI[employer] Care Teams Hemodialysis Patient Care Specialist Relationship Specialty [place] [address] [place] [address] PCP - General Housekeeper Supervisor 09/19/24
--- OUTSIDE RECORDS SUMMARY | 2025-04-20 07:55 | XMS_ITS | Clinical Summary ---
Author Organization [facility] Address [address] [place] [phone] Care Team Providers Care Treatment Specialist Name Role Phone Codie Montero MD Primary Care Provider [phone] Allergies No known active allergies Medications ondansetron [...] Description 04/18/2025 10:00 AM CDT Office Visit [facility] at [facility] [address] [place] [address] Erika Mclean MD Anxiety and depression (Primary Dx); Nausea 04/03/2025 External Device Data STL ABSTRACTION Provider, Abstract 03/27/2025 External Device Data STL ABSTRACTION Provider, Abstract 03/21/2025 Orders Only [facility] Oncology and Hematology - [place] [address] [place] [address] [place] [phone] Edilberto Zhao MD Normocytic anemia (Primary Dx) [...] file 11/20/2020 How often do you attend up health system or religion services? 1 to 4 times per year [...] Description 05/16/2025 9:30 AM CDT Office Visit [facility] [address] [place] [address] Codie Montero MD [address] [place] [address] Health Maintenance Due Date Last [...] SCREEN PAP W/HPV Routine 09/05/2024 10:49 AM CLEANING TEAM MEMBER Well woman exam with routine gynecological exam from Last 3 Months or Most Recently Relevant to Health Maintenance Results * HEMOGLOBIN A1C (01/11/2025 7:48 AM CDT) HEMOGLOBIN A1C 5.3 <5.7 % of total Hgb [facility] Comment: For the purpose of screening for the presence of diabetes: <5.7% Consistent with the absence of diabetes 5.7-6.4% Consistent with increased risk for diabetes (prediabetes) > or =6.5% Consistent with diabetes This assay result is consistent with a decreased risk of diabetes. Currently, no consensus exists regarding use of hemoglobin A1c for diagnosis of diabetes in children. According to [place] Diabetes Association (ADA) guidelines, hemoglobin A1c <7.0% represents optimal control in non- diabetic patients. Different metrics may apply to specific patient populations. Standards of Medical Care in Diabetes(ADA). ESTIMATED AVERAGE GLUCOSE (MG/DL) 105 mg/dL PPIMatt estee Ruano ESTIMATED AVERAGE GLUCOSE (MMOL/L) 5.8 mmol/L PPI estee Ruano Comment: Test Performed at: [facility] [address] [place] [address] Kyaw Ward Blood 01/11/2025 7:48 AM CDT 01/12/2025 12:11 AM CDT Codie Montero MD CHEMISTRY ORDERABLES Final Res ult [facility] [phone] [facility] [address] [place] [phone] * CERV/VAG CYTO SCREEN PAP W/HPV (09/05/2024 10:49 AM CLEANING TEAM MEMBER) CLINICAL INFORMATION [facility] Comment:None given LAST MENSTRUAL PERIOD [facility] Comment:[id number] PREV PAP: [facility] Comment:None given PREV BX: [facility] Comment:None given SOURCE [facility] Comment:Endocervix ADEQUACY: [facility] Comment: Satisfactory for evaluation. Endocervical/transformation zone component present. PAP INTERP [facility] Comment: Cytology Results: Negative for intraepithelial lesion or malignancy. COMMENT (PAP TEST) [facility] Comment: This Pap test has been evaluated with computer assisted technology. FLIGHT ENGINEER: [facility] Comment: BKA, CT(ASCP) CT screening location: [place] [address] [address] [address] [facility] Comment: EXPLANATORY NOTE: The Pap is [...] information. HPV E6/E7 Not Detected Not Detected [facility] Comment: Methodology: Account Planner-Mediated Amplification This assay detects E6/E7 viral messenger RNA (mRNA) from 14 high-risk HPV types (16,18,31,33,35,39,45,51,52,56,58,59,66,68). Cervical sources are required for HPV testing. If a vaginal source from a patient who has had a total hysterectomy with removal of cervix was submitted, please contact the testing laboratory for alternative testing options. For additional information, please refer to http://education.Next Big Sound/faq/GSS147u6 (This link if provided for information/ educational purposes only.) Test Performed at: [facility] [id number] [place] [address] Kyaw Ward MD Genital SWAB OF ENDOCERVIX / Unknown 09/05/2024 10:49 AM CLEANING TEAM MEMBER 09/06/2024 1:16 AM CLEANING TEAM MEMBER Codie Montero MD PATHOLOGY/CYTOLOGY ORDERABLES Final Result [facility] [phone] [facility] [address] [place] [phone] from Last 3 Months or Most Recently Relevant to Health Maintenance Insurance [facility] OPEN ACCESS ALLEGIAN OPEN ACCESS Care Teams Treatment Specialist Relationship Specialty Start Date End Date Codie Montero MD [address] [place] [address] [place] [address] PCP - General Internal Medicine 02/25/24
--- OUTSIDE RECORDS SUMMARY | 2025-04-20 07:55 | XMS_ITS | Clinical Summary ---
Author Organization [facility] Address [address] [place] [address] Care Team Providers Care Assistant Professor Of Religion Name Role Phone Jerson Andrews MD Primary Care Provider Source Comments [facility],non-owned Affiliates and Associated Physician Practices is amultiple site organization consisting of ambulatory clinics and hospital sitesin [place], [place], [place] and [place]. This disclosure is being madepursuant to the Care Everywhere program and may not contain all information available regarding this patient. Last updated 18.[facility] Allergies No known active allergies Medications * Be aware that medications may not be up to date on this document. Alwaysverify current medications with the patient. iud (PARAGARD) 1 Each by Intrauterine route once. Active D3-50 1.25 MG (68011 UT) Take 1 capsule by mouth every [...] on file Legal Sex Female 12:03 PM POTTERY DECORATOR Gender Identity Not on file Sexual Orientation [...] patient's age to complete this topic Insurance [facility] Care Teams Assistant Professor Of Religion Relationship Specialty Start Date End Date Jerson Andrews MD [address] [place] [id number] PCP - General Family Medicine 05/26/23
[2025-04-20 08:06] LABS: Hematocrit 37.3 % (37.0-47.0); Hemoglobin 11.8 g/dL (12.0-15.0); Immature Granulocyte Percent A 0.4 % (0-0.5); Lymphocytes Absolute Auto 1.45 K/mm3 (0.9-3.2); Mean Corpuscular HGB Conc 31.6 g/dl (32-36); Mean Corpuscular Hemoglobin 28.0 pg (26-34); Mean Corpuscular Volume 88.4 fl (80-100); Nucleated Red Blood Cells Absolute Auto 0.000 K/mm3 (0.0-0.012); Nucleated Red Blood Cells Perc 0.0 % (0.0-0.2); Platelet Count Result 217 k/mm3 (150-375); Red Blood Count 4.22 M/mm3 (4.2-5.4); White Blood Count 5.5 K/mm3 (4.5-10.0)
[2025-04-20 08:07] LABS: BEDSIDEPREGUCG Negative (Negative)
[2025-04-20 08:09] LABS: Add Urine Microscopic? NO; Appearance Urine Clear (Clear); Glucose Urine UA Negative (Negative); Leukocyte Esterase Ur Negative LEU/UL (Negative); Nitrate Urine Negative (Negative); Specific Grav Ur 1.013 (1.001-1.035)
--- NOTE | 2025-04-20 08:30 | ED_ITS ---
HPI - General Adult General Chief complaint: Abdominal Pain Stated complaint: abd pain Time Seen by Provider: 04/20/25 07:49 History of Present Illness HPI narrative: Patient is a 34-year-old female who presents ER with lower abdominal pain. Cramping increasing over last 4 days. Mild nausea. No diarrhea. No urinary frequency urgency or dysuria. No vaginal discharge or vaginal bleeding. Has not found any alleviating factors. Related Data Allergies Allergy/AdvReac Type Severity Reaction Status Date / Time No Known Allergies Allergy Verified 01/28/25 12:12 Review of Systems 2 Review of Systems: All systems reviewed & are unremarkable except as noted in HPI and below Constitutional: Constitutional: Reports no additional constitutional complaints Cardiovascular: Cardiovascular: Reports no additional cardiovascular complaints Respiratory: Respiratory: Reports no additional respiratory complaints Gastrointestinal: Gastrointestinal: Reports no additional gastrointestinal complaints Integumentary/Breasts: Skin/Breast: Reports system reviewed and no additional complaints, except as docu PMFSH Past Medical History Medical History Anemia Surgical History Surgical History History of tubal ligation History of endometrial ablation Social History Social History Smoking status: Never smoker Substance use: never Exam 2 Narrative: GENERAL: Well-appearing, well-nourished, and in no acute distress. HEAD: Normocephalic, atraumatic. ENT: Mucous membranes moist. NECK: Supple. CHEST: Clear to auscultation. No respiratory distress. HEART: Regular rate and rhythm. Normal peripheral pulses. ABDOMEN: Soft, TTP BLQ w/o guarding, nondistended. EXTREMITIES: Normal range of motion. No edema. SKIN: Warm, dry, no rash. NEURO: Alert and oriented x3. PSYCH: Normal mood and affect. Course Course Emergency Course: Labs unremarkable. Imaging with nonspecific area and ligamentum teres. Recommend outpatient follow-up and MRI. Patient verbalized understanding. Vital Signs Vital signs: Vital Signs Temperature 97.8 F 04/20/25 07:49 Pulse Rate 75 04/20/25 07:49 Respiratory Rate 16 04/20/25 07:49 Blood Pressure 113/69 04/20/25 07:49 Pulse Oximetry 100 04/20/25 07:49 Oxygen Delivery Room Air 04/20/25 07:49 Temperature 97.8 F 04/20/25 07:49 Pulse Rate 75 04/20/25 07:49 Respiratory Rate 16 04/20/25 07:49 Blood Pressure 113/69 04/20/25 07:49 Pulse Oximetry 100 04/20/25 07:49 Oxygen Delivery Room Air 04/20/25 07:49 Medical Decision Making Vital Signs Vital Signs: Vital Signs Temperature 97.8 F 04/20/25 07:49 Pulse Rate 75 04/20/25 07:49 Respiratory Rate 16 04/20/25 07:49 Blood Pressure 113/04/20/25 07:49 Pulse Oximetry 04/20/25 07:49 Oxygen Delivery Room Air 04/20/25 07:49 Temperature 97.8 F 04/20/25 07:49 Pulse Rate 75 04/20/25 07:49 Respiratory Rate 16 04/20/25 07:49 Blood Pressure 113/04/20/25 07:49 Pulse Oximetry 04/20/25 07:49 Oxygen Delivery Room Air 04/20/25 07:49 Lab Data 04/20/25 07:59 04/20/25 07:59 Labs: Lab Results 04/20/25 04/20/25 Range/Units 07:59 08:04 WBC 5.5 (4.5-10.0) K/mm3 RBC 4.22 (4.2-5.4) M/mm3 Hgb 11.8 L (12.0-15.0) g/dL Hct 37.3 (37.0-47.0) % MCV 88.4 (80-100) fl MCH 28.0 (26-34) pg MCHC 31.6 L (32-36) g/dl RDW 12.6 (11.5-14.5) % Plt Count 217 (150-375) k/mm3 MPV 11.4 H (7.4-10.4) fl Immature Gran % (Auto) 0.4 (0-0.5) % Neut % (Auto) 63.2 (45.5-73.1) % Lymph % (Auto) 26.6 (18.3-44.2) % [place] % (Auto) 6.2 (2.6-8.5) % Eos % (Auto) 2.9 (0-4.4) % Baso % (Auto) 0.7 (0.2-1.2) % Lymph # (Auto) 1.45 (0.9-3.2) K/mm3 [place] # (Auto) 0.3 (0.1-0.6) K/mm3 Eos # (Auto) 0.2 (0-0.3) K/mm3 Baso # (Auto) 0.0 (0.0-0.1) K/mm3 Abs Immat Gran (auto) 0.02 (0.00-0.031) K/mm3 Absolute Neuts (auto) 3.4 (1.3-6.7) K/mm3 Absolute Nucleated RBC 0.000 (0.0-0.012) K/mm3 Nucleated RBC % 0.0 (0.0-0.2) % Sodium 136 L (137-145) mmol/L Potassium 4.1 (3.4-5.0) mmol/L Chloride 103 (98-107) mmol/L Carbon Dioxide 24 (22-30) mmol/L Anion Gap 9 (4-12) mmol/L BUN 9 (7-17) mg/dL Creatinine 0.71 (0.7-1.0) mg/dL Estim Creat Clear Calc 95 ml/min Estimated GFR > 60 (59 - ) Glucose 107 (65-110) mg/dL Calcium 9.7 (8.4-10.2) mg/dL Total Bilirubin 0.6 (0.2-1.3) mg/dL AST 24 (14-36) U/L ALT 13 (6-35) U/L Alkaline Phosphatase 54 (38-126) U/L Total Protein 7.3 (6.3-8.2) g/dL Albumin 4.2 (3.5-5.1) g/dL Lipase 86 (23-300) U/L Urine Color Yellow (Yellow) Urine Appearance Clear (Clear) Urine pH 6.0 (5.0-9.0) Ur Specific [place] 1.013 (1.001-1.035) Urine Protein Negative (Negative) mg/dL Urine Glucose (UA) Negative (Negative) mg/dL Urine Ketones Trace H (Negative) mg/dL Ur Blood (Man) Negative (Negative) Urine Nitrate Negative (Negative) Urine Bilirubin Negative (Negative) Urine Urobilinogen 1.0 (<2.0) mg/dL Leukocyte Esterase Rfl Negative (Negative) MARNIE/UL POC Urine HCG, Qual Negative (Negative) Imaging Data Radiologist's impression: ITS Impressions Abdomen/Pelvis CT 04/20/25 09:57 IMPRESSION: 1. No acute intra-abdominal/pelvic process. 2. 1.8 cm hypodense lesion along the ligamentum teres most likely related to focal fat although given the relatively nodular appearance in the absence of a definitive correlate on earlier CT dated 03/09/2023, with consider pre and postcontrast MRI for further evaluation. Discharge Plan Discharge Clinical Impression: Nonspecific abdominal pain Patient Disposition: Home Condition: Stable Instructions: Antibiotic Form Additional Instructions: Return to the emergency department if you develop severe abdominal pain, severe nausea and vomiting to the point where you are unable to keep down fluids, if you develop chest pain or difficulty breathing, blood in your stool, dizziness or fainting, or if you develop any other new or concerning symptoms as these could be signs of more serious medical illness. Try to stay well hydrated. Additionally you have a 1.8 cm lesion along the ligamentum teres that may represent focal fat infiltration but a outpatient MRI with and without contrast will help better evaluate this area. Speak with your PCP about imaging. Patient Language: Urdu Prescriptions: New simethicone 125 mg capsule 125 mg PO QID Qty: 20 0RF Rx Instructions: administer after meals and at bedtime dicyclomine 20 mg tablet 20 mg PO QID Qty: 20 0RF ondansetron 4 mg tablet,disintegrating 4 mg PO Q6H PRN (Reason: nausea and vomiting) Qty: 10 0RF No Action methylprednisolone [Medrol (Erick)] 4 mg tablets,dose pack See Rx Instructions PO .COMPLEX Qty: 21 0RF Rx Instructions: orally per package directions Follow-up/Referrals: Gordy,Lanny Limon APRN [Primary Care Provider] - 1 Week
--- NOTE | 2025-04-20 09:10 | PC.NURSE ---
Called lab and spoke with Rima about the pending CMP for pt. Rima states she will check with chemistry.
[2025-04-20 09:33] LABS: Alanine Aminotransferase 13 U/L (6-35); Albumin Level 4.2 g/dL (3.5-5.1); Alkaline Phosphatase 54 U/L (38-126); Anion Gap 9 mmol/L (4-12); Aspartate Amino Transferase 24 U/L (14-36); Bilirubin,Total 0.6 mg/dL (0.2-1.3); Blood Urea Nitrogen 9 mg/dL (7-17); Calcium 9.7 mg/dL (8.4-10.2); Carbon Dioxide 24 mmol/L (22-30); Chloride 103 mmol/L (98-107); Estimated CRCL calculation 95 ml/min; Estimated Glomerular Filt Rate > 60; Glucose 107 mg/dL (65-110); Lipase 86 U/L (23-300); Potassium 4.1 mmol/L (3.4-5.0); Sodium 136 mmol/L (137-145); Total Protein 7.3 g/dL (6.3-8.2)
== END 2025-04-20 11:33 | disposition home or self-care (01) ==
PROVIDERS: Emergency Provider Emergency Medicine; PCP Nurse Practitioner Adult Health
DX: R10.30 Lower abdominal pain, unspecified (principal); R93.5 Abnormal findings on diagnostic imaging of other abdominal regions, including retroperitoneum; Z86.2 Personal history of diseases of the blood and blood-forming organs and certain disorders involving the immune mechanism
CPT/HCPCS: 36415; 74177; 80053; 81003; 81025; 83690; 85025; 99284; Q9967